=== PATIENT | female | born 1990 | race Caucasian/White ===

== ENCOUNTER → 2016-12-15 | Outpatient (CLI) | payer OTHER ==
[~2016-12-15] MED LIST: CYCL10TA PO; DRIS50002 PO; FISH100049 PO; FISHCAP PO; HYDR200T3 PO; KETO10TAB PO; NAPR500T2 PO; NORT50CA PO; PROT1TAB2 PO; TYLE325T5 PO; VITA10002 PO; ZITHTAB PO; ZOFR4TAB3 PO
[2016-12-15 19:46] LABS: BASO % 0.6 % (0.0-1.0); EOS # 0.1 K/mm3 (0.0-0.50); EOS % 1.2 % (0.0-3.0); LYMPH # 1.9 K/mm3 (1.5-6.5); LYMPH % 25.2 % (24.0-44.0); MEAN CORPUSCULAR HEMOGLOBIN 29.9 pg (27.0-33.0); MEAN CORPUSCULAR VOLUME 88.1 fl (80.0-96.0); MONO # 0.4 K/mm3 (0.0-0.8); MONO % 5.4 % (0.0-5.0); NEUTROPHILS # 4.8 K/mm3 (1.8-7.7); NEUTROPHILS % 65.9 % (36.0-66.0); WHITE BLOOD COUNT 7.2 K/mm3 (4.0-10.0)
[2016-12-15 20:03] LABS: ALT/SGPT 69 U/L (12-78); AST/SGOT 38 U/L (15-37); COMPLEMENT C3 181 MG/DL (90-180); COMPLEMENT C4 37.3 MG/DL (10-40); CREATININE FOR GFR 0.65 MG/DL (0.55-1.02); GLOMERULAR FILTRATION RATE > 60.0 (>60)
== END ==
LOC: M WUC 17:37
PROVIDERS: ATTEND Internal Medicine Rheumatology
DX: Z79.899 Other long term (current) drug therapy (principal)

== ENCOUNTER 2017-06-23 19:12 | Emergency (ER) | payer MEDICAID, OTHER ==
[~2017-06-23] VITALS: Ht 175.3 cm; Wt 177.0 kg
[~2017-06-23 19:12] MED LIST changes: -NAPR500T2 PO; +NAPR500T3 PO
[2017-06-23 19:40] VITALS: BP 186/93
[2017-06-23] MEDS ORDERED: PERCOCET 5MG/325MG TAB PO ONE (20:15)
[2017-06-23] MEDS ORDERED: PERC5TAB12 PO (22:09)
--- NOTE | 2017-06-24 05:45 | REP ---
LEFT ANKLE: CLINICAL: Trauma. TECHNIQUE: AP, lateral, bilateral oblique views of the left ankle. FINDINGS: Diffuse soft tissue swelling is appreciated. No acute fracture or dislocation. Joint spaces and ankle mortise are intact. No subcutaneous emphysema or radiodense foreign body. IMPRESSION: Mild swelling. No acute fracture. Signed by Andrey Hinds MD 06/25/2017 08:23 A
--- NOTE | 2017-06-24 05:54 | REP ---
LEFT KNEE: CLINICAL: Trauma. TECHNIQUE: AP, lateral, bilateral oblique views of the left knee. FINDINGS: There appears to be an avulsion fracture of the fibular head which requires correlation. Moderate tricompartmental degenerative changes are also noted including increased sclerosis to the tibial plateau and posterior patella with subtle marginal spurring and minimal joint space narrowing. No further acute fracture or dislocation identified or suggested. Very subtle avulsion injury off of the inferior lateral aspect of the patella cannot be excluded as well and requires correlation. IMPRESSION: Avulsion fracture of the fibular head and less likely small avulsion fracture of the patella. Moderate tricompartmental degenerative changes. Signed by Andrey Hinds MD 06/25/2017 08:25 A
== END 2017-06-23 22:19 | disposition home or self-care (01) ==
LOC: M ED 19:12 → EDBD 19:12 → M ED 22:19
DX: S82.832A Other fracture of upper and lower end of left fibula, initial encounter for closed fracture (principal); W19.XXXA Unspecified fall, initial encounter; Y92.098 Other place in other non-institutional residence as the place of occurrence of the external cause; Y93.01 Activity, walking, marching and hiking; Y99.8 Other external cause status; M79.7 Fibromyalgia; E03.9 Hypothyroidism, unspecified; G62.9 Polyneuropathy, unspecified; M32.9 Systemic lupus erythematosus, unspecified; N28.9 Disorder of kidney and ureter, unspecified; Z79.899 Other long term (current) drug therapy; Z88.1 Allergy status to other antibiotic agents; Z88.5 Allergy status to narcotic agent; Z88.2 Allergy status to sulfonamides; Z91.040 Latex allergy status; Z91.09 Other allergy status, other than to drugs and biological substances

== ENCOUNTER → 2017-07-05 | Outpatient (CLI) | payer OTHER ==
[~2017-07-05] MED LIST changes: +PERC5TAB12 PO
--- NOTE | 2017-07-05 18:16 | REP ---
MRI LEFT KNEE: TECHNIQUE: Axial proton density fat saturation, sagittal proton density T2 STIR, water excitation, coronal proton density, proton density fat saturation. Menisci are intact. I do not see evidence of a meniscal tear. The cruciate and collateral ligaments are intact. Extensor mechanism is intact. Mild to moderate edema is seen anterior to the patella and patellar tendon. No osteochondral defect is seen. There is marrow edema in the medial femoral condyle and throughout the tibial plateau and head of the fibula consistent with bone bruising. Two low signal areas posteriorly in the distal femoral shaft may represent bone islands. There is a fairly large joint effusion with some fluid extending into the popliteal fossa. There is also moderate edema in the posterior superficial soft tissues. IMPRESSION: No evidence of meniscal tear. Cruciate and collateral ligaments are intact. Bone bruising medial femoral condyle, tibial plateau and fibular head. Large joint effusion. Signed by David Guadarrama MD 07/06/2017 05:20 P
== END ==
LOC: M PLARAD 15:03
PROVIDERS: ATTEND Orthopaedic Surgery
DX: M25.462 Effusion, left knee (principal)

== ENCOUNTER → 2017-08-02 | Outpatient (CLI) | payer OTHER | LOC: M PLARAD 07:38 | DX: R51 Headache (principal) | CPT/HCPCS: 70551 ==

== ENCOUNTER 2017-08-16 14:35 | Outpatient (RCR) | payer OTHER | END 2017-08-18 | LOC: M PT 14:35 | DX: Z51.89 Encounter for other specified aftercare (principal); M25.462 Effusion, left knee | CPT/HCPCS: 97110 ==

== ENCOUNTER 2017-08-20 15:07 | Outpatient (RCR) | payer OTHER | END 2017-09-15 | LOC: M PT 15:07 | DX: Z51.89 Encounter for other specified aftercare (principal); S80.02XA Contusion of left knee, initial encounter; M25.462 Effusion, left knee | CPT/HCPCS: 97110 ==

== ENCOUNTER → 2017-12-06 | Outpatient (CLI) | payer OTHER | LOC: M RAD 14:10 | DX: M79.604 Pain in right leg (principal) | CPT/HCPCS: 93971 ==

== ENCOUNTER → 2017-12-06 | Outpatient (CLI) | payer OTHER | LOC: M WUC 12:00 | DX: M25.561 Pain in right knee (principal) | CPT/HCPCS: 73564 ==

== ENCOUNTER → 2017-12-27 | Outpatient (CLI) | payer OTHER | LOC: M PLARAD 07:42 | DX: M22.41 Chondromalacia patellae, right knee (principal); M17.11 Unilateral primary osteoarthritis, right knee | CPT/HCPCS: 73721 ==

== ENCOUNTER → 2018-09-29 | Outpatient (CLI) | payer OTHER ==
[~2018-09-29] MED LIST changes: -DRIS50002 PO; +DRIS50003 PO; +NAPR-885 PO; -NAPR500T3 PO; +ZOFR4TAB14 PO; -ZOFR4TAB3 PO
[2018-09-29 16:36] LABS: BASO % 0.6 % (0.0-1.0); EOS # 0.1 10^3/uL (0.0-0.50); EOS % 1.4 % (0.0-3.0); HEMATOCRIT 43.3 % (36.0-47.0); HEMOGLOBIN 14.2 g/dl (12.0-15.5); LYMPH # 1.5 10^3/uL (1.5-6.5); LYMPH % 30.1 % (24.0-44.0); MEAN CORPUSCULAR HEMOGLOBIN 30.1 pg (27.0-33.0); MEAN CORPUSCULAR HGB CONC 32.8 g/dl (32.0-36.5); MEAN CORPUSCULAR VOLUME 91.7 fl (80.0-96.0); MONO # 0.6 10^3/uL (0.0-0.8); MONO % 13.1 % (0.0-5.0); NEUTROPHILS # 2.7 10^3/uL (1.8-7.7); NEUTROPHILS % 54.6 % (36.0-66.0); PLATELET COUNT, AUTOMATED 269 10^3/uL (150-450); RED BLOOD COUNT 4.72 10^6/uL (4.00-5.40); WHITE BLOOD COUNT 4.9 10^3/uL (4.0-10.0)
[2018-09-29 16:48] LABS: HEMOGLOBIN A1c 4.9 %
[2018-09-29 17:00] LABS: ALBUMIN 3.6 GM/DL (3.2-5.2); ALT/SGPT 42 U/L (12-78); BILIRUBIN,TOTAL 0.7 MG/DL (0.2-1.0); BLOOD UREA NITROGEN 12 MG/DL (7-18); CALCIUM LEVEL 9.5 MG/DL (8.5-10.1); CARBON DIOXIDE LEVEL 27 MEQ/L (21-32); CHLORIDE LEVEL 103 MEQ/L (98-107); CREATININE FOR GFR 0.63 MG/DL (0.55-1.30); FERRITIN 86 NG/ML (8-252); GLOMERULAR FILTRATION RATE > 60.0 (>60); GLUCOSE, FASTING 89 MG/DL (70-100); IRON (FE) 67 UG/DL (50-170); MAGNESIUM LEVEL 1.8 MG/DL (1.8-2.4); PERCENT SATURATION 23.8 % (13.2-45.0); PHOSPHORUS LEVEL 2.3 MG/DL (2.5-4.9); POTASSIUM SERUM 3.9 MEQ/L (3.5-5.1); SODIUM LEVEL 140 MEQ/L (136-145); TOTAL IRON BINDING CAPACITY 282 UG/DL (250-450); TOTAL PROTEIN 6.8 GM/DL (6.4-8.2)
[2018-09-29 17:05] LABS: TOTAL 25(OH) VITAMIN D 73.3 NG/ML (30.0-100.0)
[2018-09-29 17:06] LABS: VITAMIN B12 LEVEL 1485 PG/ML (247-911)
[2018-09-29 18:16] LABS: HEMATOCRIT 43.3 % (36.0-47.0)
== END ==
LOC: M WUC 14:10
PROVIDERS: ATTEND Surgery
DX: K91.2 Postsurgical malabsorption, not elsewhere classified (principal); E55.9 Vitamin D deficiency, unspecified; Z98.84 Bariatric surgery status

== ENCOUNTER → 2018-12-13 | Outpatient (CLI) | payer OTHER ==
[~2018-12-13] MED LIST changes: +CYCL10TA; +FLUO20CA19; +GABA600T4; +HYDR-3363; +LEVO50TA5; +METO1TAB32; +TRAZ-252; +ZALE10CA
[2018-12-13 20:41] LABS: INR 1.06; PROTHROMBIN TIME 13.9 SECONDS (12.1-14.4)
[2018-12-13 20:42] LABS: PARTIAL THROMBOPLASTIN TIME 36.7 SECONDS (25.4-37.6)
== END ==
LOC: M WUC 18:40
PROVIDERS: ATTEND Physician Assistant
DX: M79.81 Nontraumatic hematoma of soft tissue (principal)

== ENCOUNTER 2019-02-28 19:02 | Emergency (ER) | payer OTHER ==
[~2019-02-28] VITALS: Ht 175.3 cm; Wt 105.3 kg
[~2019-02-28 19:02] MED LIST changes: +CYAN100049 PO; -VITA10002 PO
[2019-02-28 21:10] LABS: BASO % 0.5 % (0.0-1.0); EOS # 0.2 10^3/uL (0.0-0.50); EOS % 2.5 % (0.0-3.0); HEMOGLOBIN 13.2 g/dl (12.0-15.5); LYMPH # 2.3 10^3/uL (1.5-6.5); LYMPH % 38.4 % (24.0-44.0); MEAN CORPUSCULAR HEMOGLOBIN 31.2 pg (27.0-33.0); MEAN CORPUSCULAR VOLUME 94.6 fl (80.0-96.0); MONO # 0.6 10^3/uL (0.0-0.8); MONO % 10.3 % (0.0-5.0); NEUTROPHILS # 2.9 10^3/uL (1.8-7.7); NEUTROPHILS % 48.1 % (36.0-66.0); PLATELET COUNT, AUTOMATED 291 10^3/uL (150-450); RED BLOOD COUNT 4.23 10^6/uL (4.00-5.40)
[2019-02-28] MEDS ORDERED: KETOROLAC 30 MG/ML VIAL (J1885) IV ONE (22:00)
[2019-02-28] MEDS ORDERED: NS 1,000 ML IV ONE (22:00)
[2019-02-28 23:35] LABS: HCG, SERUM QUALITATIVE NEGATIVE (NEGATIVE)
[2019-02-28 23:44] LABS: ALBUMIN 3.1 GM/DL (3.2-5.2); ALT/SGPT 17 U/L (12-78); BILIRUBIN,TOTAL 0.3 MG/DL (0.2-1.0); BLOOD UREA NITROGEN 12 MG/DL (7-18); CALCIUM LEVEL 8.8 MG/DL (8.5-10.1); CARBON DIOXIDE LEVEL 25 MEQ/L (21-32); CHLORIDE LEVEL 109 MEQ/L (98-107); CREATININE FOR GFR 0.49 MG/DL (0.55-1.30); FREE T4 0.92 NG/DL (0.76-1.46); GLOMERULAR FILTRATION RATE > 60.0 (>60); GLUCOSE, FASTING 68 MG/DL (70-100); POTASSIUM SERUM 4.1 MEQ/L (3.5-5.1); SODIUM LEVEL 145 MEQ/L (136-145); TOTAL PROTEIN 5.8 GM/DL (6.4-8.2)
[2019-03-01 00:48] VITALS: BP 107/56
--- NOTE | 2019-03-01 00:57 | REPVR ---
EXAM: CT Head Without Contrast EXAM DATE/TIME: 02/28/2019 12:03 AM CLINICAL HISTORY: 28 years old, female; Pain; Headache; Additional info: Dizziness TECHNIQUE: Imaging protocol: Computed tomography images of the head without contrast. Radiation optimization: All CT scans at this facility use at least one of these dose optimization techniques: automated exposure control; mA and/or kV adjustment per patient size (includes targeted exams where dose is matched to clinical indication); or iterative reconstruction. COMPARISON: MRI-Brain without Contrast 08/02/2017 8:13 AM FINDINGS: There is no acute intracranial hemorrhage, extra axial hematoma, or midline shift. The ventricles are not dilated. No evidence of pneumocephalus. No CT findings are seen at the current time to suggest changes of acute territorial vascular infarction. Note is made however, that CT changes, may lag clinical findings in acute CVA. If clinically indicated, consideration could be given to MRI with diffusion weighted imaging, due to its greater sensitivity, for detection of acute ischemic change. No evidence of regional or global cerebral edema. No evidence of white matter attenuation changes. Intracranial calcifications are incidentally noted. No pericranial scalp hematoma is seen. No acute cranial vault fracture is seen. No fluid is seen within the visualized paranasal sinuses or mastoid air cells. IMPRESSION: No evidence of an acute intracranial abnormality. No evidence of acute territorial major vessel infarct, mass effect, or hemorrhage. Electronically signed by: Gil Cerrato On 03/01/2019 00:57:20 AM
--- NOTE | 2019-03-01 07:20 | ECGEPIP ---
[facility] - ED Test Date: 2019-02-28 Pat Name: FLAVIA CASTANEDA Department: Room: - Gender: Female Manager Solution: stalin : 1990 Requested By: FARZANEH Stephen PA-C Order Number: [id number] Reading MD: Hailey Love Measurements Intervals [place] Rate: 53 P: 49 ID: [id number] QRS: 20 QRSD: 94 T: -1 QT: 427 QTc: 402 Interpretive Statements SINUS BRADYCARDIA NONSPECIFIC T-WAVE ABNORMALITY No prior Electronically Signed on 03-01-2019 7:20:16 EDT by Hailey Love
[2019-03-01 09:29] LABS: VITAMIN B12 LEVEL 563 PG/ML (247-911)
== END 2019-03-01 00:55 | disposition home or self-care (01) ==
LOC: M ED 19:02
DX: R42 Dizziness and giddiness (principal); R11.2 Nausea with vomiting, unspecified; R53.1 Weakness; I10 Essential (primary) hypertension; J45.909 Unspecified asthma, uncomplicated; M32.9 Systemic lupus erythematosus, unspecified; E03.9 Hypothyroidism, unspecified; Z98.84 Bariatric surgery status; Z79.899 Other long term (current) drug therapy; Z79.890 Hormone replacement therapy; Z88.1 Allergy status to other antibiotic agents; Z88.2 Allergy status to sulfonamides; Z88.5 Allergy status to narcotic agent; Z91.040 Latex allergy status; Z91.048 Other nonmedicinal substance allergy status
CPT/HCPCS: 70450; 80053; 81001; 82607; 83735; 84439; 84443; 84703; 85025; 87086; 93005; 96374; 99284; J1885

== ENCOUNTER 2019-05-09 18:21 | Observation (INO) | payer OTHER ==
[~2019-05-09] VITALS: Ht 175.3 cm; Wt 95.6 kg
[2019-05-09 18:59] LABS: BASO % 0.4 % (0.0-1.0); EOS % 0.1 % (0.0-3.0); HEMATOCRIT 39.8 % (36.0-47.0); HEMOGLOBIN 13.3 g/dl (12.0-15.5); LYMPH % 13.5 % (24.0-44.0); MEAN CORPUSCULAR HEMOGLOBIN 30.8 pg (27.0-33.0); MEAN CORPUSCULAR HGB CONC 33.4 g/dl (32.0-36.5); MEAN CORPUSCULAR VOLUME 92.1 fl (80.0-96.0); MONO # 0.3 10^3/uL (0.0-0.8); MONO % 3.6 % (0.0-5.0); NEUTROPHILS # 5.9 10^3/uL (1.5-8.5); NEUTROPHILS % 82.1 % (36.0-66.0); PLATELET COUNT, AUTOMATED 279 10^3/uL (150-450); RED BLOOD COUNT 4.32 10^6/uL (4.00-5.40); WHITE BLOOD COUNT 7.2 10^3/uL (4.0-10.0)
[2019-05-09] MEDS ORDERED: ONDANSETRON 4MG/2ML VIAL (J2405) IV ONE (19:00)
[2019-05-09 19:28] LABS: ALBUMIN 3.4 GM/DL (3.2-5.2); ALT/SGPT 12 U/L (12-78); BILIRUBIN,DIRECT 0.2 MG/DL (0.0-0.2); BILIRUBIN,TOTAL 0.7 MG/DL (0.2-1.0); BLOOD UREA NITROGEN 9 MG/DL (7-18); CALCIUM LEVEL 9.8 MG/DL (8.5-10.1); CARBON DIOXIDE LEVEL 22 MEQ/L (21-32); CHLORIDE LEVEL 109 MEQ/L (98-107); CREATININE FOR GFR 0.49 MG/DL (0.55-1.30); GLOMERULAR FILTRATION RATE > 60.0 (>60); GLUCOSE, FASTING 120 MG/DL (70-100); LIPASE 55 U/L (73-393); SODIUM LEVEL 140 MEQ/L (136-145); TOTAL PROTEIN 7.1 GM/DL (6.4-8.2)
[2019-05-09] MEDS ORDERED: METOCLOPRAMIDE INJ 10MG/2ML VIAL (J2765) IV ONE (20:00)
[2019-05-09] MEDS ORDERED: SUCR1TA PO (20:24)
[2019-05-09] MEDS ORDERED: MISO200T56 PO ×2 (20:24→21:48)
[2019-05-09] MEDS ORDERED: OMEP-221 PO ×2 (20:24→21:48)
[2019-05-09] MEDS ORDERED: CAPSAICIN 0.025% CR 60 GM TOP ONE (20:30)
[2019-05-09] MEDS ORDERED: NORTRIPTYLINE 25 MG CAP PO SCH (21:00)
[2019-05-09] MEDS: SUCRALFATE 1 GM TAB PO SCH (21:00)
[2019-05-09] MEDS: miSOPROStol 200 MCG TAB (S0191) PO SCH (21:00)
[2019-05-09] MEDS: HYDROXYCHLOROQUINE 200 MG TAB PO SCH (21:00)
[2019-05-09] MEDS ORDERED: HALOPERIDOL 5 MG/ML VIAL (J1630) IV ONE (21:00)
[2019-05-09] MEDS: GABAPENTIN 300 MG CAP PO SCH (21:00)
[2019-05-09] MEDS ORDERED: ISOVUE-370 76% 100ML VIAL (Q9967) As Ordered ONE (21:34)
[2019-05-09] MEDS ORDERED: diphenhydrAMINE INJ 50MG/ML VIAL (J1200) IV ONE (21:45)
[2019-05-09] MEDS ORDERED: FLUO20CA8 PO (21:48)
[2019-05-09] MEDS ORDERED: CYCL10TA PO (21:48)
[2019-05-09] MEDS ORDERED: NORT25CA2 PO (21:48)
[2019-05-09] MEDS ORDERED: ONDA4TAB6 PO (21:48)
[2019-05-09] MEDS ORDERED: ZALE10CA PO (21:48)
[2019-05-09] MEDS ORDERED: GABA600T4 PO (21:48)
[2019-05-09] MEDS ORDERED: SYNT50TA PO (21:48)
[2019-05-09] MEDS ORDERED: HYDR1TAB33 PO (21:48)
[2019-05-09] MEDS ORDERED: SUCR1TAB56 PO (21:48)
[2019-05-09] MEDS ORDERED: VITACHTA PO (21:53)
--- NOTE | 2019-05-09 22:49 | REPVR ---
PROCEDURE INFORMATION: Exam: CT Abdomen And Pelvis With Contrast Exam date and time: 05/09/2019 10:01 PM Clinical history: 28 years old, female; Vomiting; Abdominal pain; Generalized; Additional info: Diffuse abdominal pain, intractible vomiting, gastric bypass TECHNIQUE: Imaging protocol: Computed tomography of the abdomen and pelvis with intravenous contrast. Radiation optimization: All CT scans at this facility use at least one of these dose optimization techniques: automated exposure control; mA and/or kV adjustment per patient size (includes targeted exams where dose is matched to clinical indication); or iterative reconstruction. Contrast material: ISOVUE 370; Contrast volume: 100 ml; Contrast route: IV; COMPARISON: CT ABD PELVIS WITH CONTRAST 04/02/2015 1:43 PM FINDINGS: Liver: Normal. No mass. Gallbladder and bile ducts: There has been prior cholecystectomy. No ductal dilation. Pancreas: Normal. No ductal dilation. Spleen: Normal. No splenomegaly. Adrenals: Normal. No mass. Kidneys and ureters: Normal. No hydronephrosis. Stomach and bowel: Changes from prior bariatric surgery are noted. There is mild colonic diverticulosis without evidence of diverticulitis. Small right lower quadrant anterior abdominal wall hernia containing nonobstructed small bowel. No bowel obstruction or inflammatory changes. Appendix: No evidence of appendicitis. Intraperitoneal space: Unremarkable. No free air. No significant fluid collection. Vasculature: Unremarkable. No abdominal aortic aneurysm. Lymph nodes: Unremarkable. No enlarged lymph nodes. Bladder: Unremarkable as visualized. Reproductive: Unremarkable as visualized. Bones/joints: There are degenerative changes in the spine and pelvis. Soft tissues: Additional small fat containing anterior abdominal wall hernias. IMPRESSION: 1. Colonic diverticulosis without evidence of diverticulitis. 2. Stable appearance of small intra-abdominal wall hernias. 3. No acute findings. Electronically signed by: Alexi Wilson On 05/09/2019 22:49:22 PM
--- NOTE | 2019-05-09 23:10 | HPEPDOC ---
[facility] Medical History & Physical Date of Admission May 09, 2019 Date of Service: May 09, 2019 Primary Care Physician: Samreen Dubon Attending Physician: SO RECIO MD History and Physical TIME OF SERVICE: 11:40 PM CHIEF COMPLAINT: Nausea and vomiting HISTORY OF PRESENT ILLNESS: This is a 28-year-old female who presents with complaints of nausea and vomiting that began around 1 PM . She denies having blood in the vomit; the emesis consisted of the food that she earlier on in the day. Associated symptoms include fevers, chills, sweating, 3 episodes of non-bloody diarrhea (at her baseline she is constipated and has about one bowel movement per week) and 8/10, sharp mid abdominal pain which she attributes to heaving. Her last episode of emesis was around 9 PM after receiving Zofran, Reglan, Haldol, and capsaicin. She also received IV fluids. CT of abdomen contrast showed diverticulosis without diverticulitis. REVIEW OF SYSTEMS: 12 point review of systems negative except as listed in HPI PAST MEDICAL/ SURGICAL HISTORY: Obesity / Status post gastric bypass in August 2018 Fibromyalgia. Migraines. Chronic hypertension. Hypothyroidism. History of multiple kidney stone status post cystoscopy Unspecified autoimmune disease on Plaquenil Neuropathy PCOS History of congenital heart murmur Status post cholecystectomy SOCIAL HISTORY: Denies using tobacco. Does not use alcohol. Uses cannabis - She last used cannabis around 12 PM FAMILY HISTORY: Diabetes Chronic CAD ALLERGIES: Please see below. HOME MEDICATIONS: Please see below. PHYSICAL EXAMINATION: VITAL SIGNS: Please see below. GENERAL APPEARANCE: Well-nourished, well-developed, appears tired HEENT: Normocephalic, atraumatic, mucous membranes moist and pink CARDIOVASCULAR: Regular rate and rhythm. No murmurs, rubs or gallops LUNGS: Clear to auscultation bilaterally on room air ABDOMEN: Bowel sounds hypoactive. Abdomen is soft and nontender on palpation MUSCULOSKELETAL: Range of Motion is intact in all 4 extremities INTEGUMENT: Skin is slightly flushed NEUROLOGICAL: Cranial nerves II-12 are grossly intact. Speech is not dysarthric PSYCHIATRIC: Alert and oriented to person, place and time, and to understand and follow commands LABORATORY DATA: See below. IMAGING: CT of the abdomen contrast " IMPRESSION: 1. Colonic diverticulosis without evidence of diverticulitis. 2. Stable appearance of small intra- abdominal wall hernias. 3. No acute findings. " ASSESSMENT: Ms. Trevino is a 28-year-old female with a past medical history of migraines, chronic hypertension, fibro-myalgia, hepatitis, unspecified autoimmune disease, and gastric bypass will be admitted for management of dehydration /orthostatic hypotension secondary to vomiting. PLAN: 1. Orthostatic hypotension / dehydration secondary to vomiting Orthostats are positive. The vomiting may be due to a virus or related to cannabis use. She does not have any SIRS criteria and the UA was not consistent with a UTI Plan: Admit to general medical floor under observation/orthostatic/continue with IV fluids/ PO Zofran when necessary/advanced to soft diet in the morning 2.Obesity / Status post gastric bypass in August 2018 BMI 30.7 Plan: The patient missed her follow-up appointment with her bariatric surgeon, but we will schedule soon/resume vitamins. 3. Chronic hypertension. Plan: Continue home meds in the morning 4. Migraines. Plan: Continue home meds 5. Hypothyroidism. Plan: Continue home meds 6. Neuropathy Plan: Continue home meds 7. Unspecified autoimmune disease She reports having her her vision exam Q6 months Plan: c/w Plaquenil 8. Smokes THC. Plan: Smoking cessation education DVT prophylaxis with SCDs. Disposition: she will likely go home tomorrow after tolerating a regular diet Vital Signs Vital Signs Date Time Temp Pulse Resp B/P (MAP) Pulse Ox O2 Delivery O2 Flow Rate FiO2 05/09/19 22:46 99 147/86 (106) 84 138/73 (94) 85 135/75 (95) 05/09/19 20:31 98.2 16 97 Room Air Laboratory Data Labs 24H Laboratory Tests 2 05/09/19 18:37: Immature Granulocyte % (Auto) 0.3, Neutrophils (%) (Auto) 82.1H, Lymphocytes (%) (Auto) 13.5L, Monocytes (%) (Auto) 3.6, Eosinophils (%) (Auto) 0.1, Basophils (%) (Auto) 0.4, Neutrophils # (Auto) 5.9, Lymphocytes # (Auto) 1.0L, Monocytes # (Auto) 0.3, Eosinophils # (Auto) 0.0, Basophils # (Auto) 0.0, Nucleated Red Blood Cells % (auto) 0.0, Urine Color YELLOW, Urine Appearance TURBIDH, Urine pH 7.0, Urine Specific [place] 1.025, Urine Protein 1+H, Urine Glucose (UA) NEGATIVE, Urine Ketones 2+H, Urine Blood 2+H, Urine Nitrite NEGATIVE, Urine Bilirubin NEGATIVE, Urine Urobilinogen 4.0H, Urine Leukocyte Esterase NEGATIVE, Urine WBC (Auto) 2, Urine RBC (Auto) 7H, Urine Hyaline Casts (Auto) 0, Urine Bacteria (Auto) NEGATIVE, Urine Squamous Epithelial Cells 4, Urine Amorphous Sediment MODERATEH, Urine Mucus (Auto) SMALL, Urine Sperm (Auto) , Anion Gap 9, Glomerular Filtration Rate > 60.0, Calcium Level 9.8, Total Bilirubin 0.7, Direct Bilirubin 0.2, Aspartate Amino Transf (AST/SGOT) 17, Alanine Aminotransferase (ALT/SGPT) 12, Alkaline Phosphatase 97, Total Protein 7.1, Albumin 3.4, Albumin/Globulin Ratio 0.92L, Lipase 55L 05/09/19 18:46: POC Beta HCG, Quantitative < 5.0 CBC/BMP Laboratory Tests 05/09/19 18:37 Home Medications Scheduled Cyanocobalamin (Vitamin B-12) (Vitamin B-12) 1,000 Mcg Tab, 1,000 MCG PO DAILY Fluoxetine Hcl (Fluoxetine HCl) 20 Mg Capsule, 40 MG PO DAILY Gabapentin (Gabapentin) 600 Mg Tablet, 600 MG PO TID Hydroxychloroquine Sulfate (Hydroxychloroquine Sulfate) 200 Mg Tab, 200 MG PO BID Levothyroxine Sodium (Synthroid) 50 Mcg Tablet, 50 MCG PO DAILY Misoprostol (Misoprostol) 200 Mcg Tablet, 200 MCG PO QID Multivitamins (Child Chew Vitamin) 1 Each Tab.chew, 2 TAB PO DAILY TAKES AROUND LUNCHTIME Nortriptyline HCl (Nortriptyline HCl) 25 Mg Capsule, 25 MG PO QHS Omeprazole (Omeprazole) 40 Mg Capsule.dr, 40 MG PO BID Sucralfate (Sucralfate) 1 Gm Tablet, 1 GM PO QID Scheduled PRN Cyclobenzaprine HCl (Cyclobenzaprine HCl) 10 Mg Tablet, 10 MG PO TID PRN for MUSCLE SPASMS Hydroxyzine HCl (Hydroxyzine HCl) 50 Mg Tablet, 50 MG PO QID PRN for ANXIETY Ondansetron (Ondansetron Odt) 4 Mg Tab.rapdis, 4 MG PO QID PRN for NAUSEA Zaleplon (Zaleplon) 10 Mg Capsule, 10 MG PO QHS PRN for SLEEP Allergies Coded Allergies: Sulfa (Sulfonamide Antibiotics) (Verified Allergy, Unknown, 02/28/19) TAPE (Verified Allergy, Unknown, 02/28/19) ciprofloxacin (Verified Allergy, Unknown, 02/28/19) clindamycin (Verified Allergy, Unknown, 02/28/19) hydromorphone (Verified Allergy, Unknown, 02/28/19) latex (Verified Allergy, Unknown, 02/28/19) morphine (Verified Allergy, Unknown, 02/28/19) A-FIB/CHADSVASC A-FIB History Current/History of A-Fib/PAF?: No Current PO Anticoag Therapy: SO Peralta MD May 09, 2019 23:10
[2019-05-10 01:15] VITALS: BP 132/66
[2019-05-10] MEDS ORDERED: ONDANSETRON 4 MG TAB (S0181) PO PRN (02:30)
[2019-05-10] MEDS ORDERED: NS 1,000 ML IV SCH (02:30)
[2019-05-10] MEDS ORDERED: CYCLOBENZAPRINE 10 MG TAB PO PRN (02:30)
[2019-05-10] MEDS ORDERED: hydrOXYzine 50 MG TAB PO PRN (02:30)
[2019-05-10] MEDS ORDERED: LEVOTHYROXINE 50MCG TABLET (0.05MG) PO SCH (06:00)
[2019-05-10 08:00] VITALS: BP 127/71
[2019-05-10 08:08] LABS: HEMOGLOBIN 13.2 g/dl (12.0-15.5); MEAN CORPUSCULAR HEMOGLOBIN 30.8 pg (27.0-33.0); MEAN CORPUSCULAR VOLUME 93.5 fl (80.0-96.0); PLATELET COUNT, AUTOMATED 277 10^3/uL (150-450); RED BLOOD COUNT 4.28 10^6/uL (4.00-5.40); WHITE BLOOD COUNT 7.2 10^3/uL (4.0-10.0)
[2019-05-10 08:33] LABS: BLOOD UREA NITROGEN 7 MG/DL (7-18); CALCIUM LEVEL 9.3 MG/DL (8.5-10.1); CARBON DIOXIDE LEVEL 24 MEQ/L (21-32); CHLORIDE LEVEL 108 MEQ/L (98-107); CREATININE FOR GFR 0.49 MG/DL (0.55-1.30); GLOMERULAR FILTRATION RATE > 60.0 (>60); GLUCOSE, FASTING 76 MG/DL (70-100); POTASSIUM SERUM 3.8 MEQ/L (3.5-5.1); SODIUM LEVEL 140 MEQ/L (136-145)
[2019-05-10] MEDS: HYDROXYCHLOROQUINE 200 MG TAB PO SCH (08:35)
[2019-05-10] MEDS: GABAPENTIN 300 MG CAP PO SCH (08:35)
[2019-05-10] MEDS: miSOPROStol 200 MCG TAB (S0191) PO SCH ×2 (08:36→12:17)
[2019-05-10] MEDS: SUCRALFATE 1 GM TAB PO SCH ×2 (08:36→12:17)
[2019-05-10] MEDS ORDERED: FLUoxetine 20 MG CAP PO SCH (09:00)
[2019-05-10] MEDS ORDERED: CYANOCOBALAMIN 500 MCG TAB PO SCH (09:00)
[2019-05-10] MEDS ORDERED: PANTOPRAZOLE 40MG TAB (PROTONIX) PO SCH (09:00)
[2019-05-10] MEDS ORDERED: MULTIVITAMINS CHILDREN'S CHEWABLE TABLET PO SCH (12:00)
--- NOTE | 2019-05-10 16:37 | DS.PDOC ---
Discharge Summary General Date of Admission May 09, 2019 at 18:22 Date of Discharge 05/10/2019 Primary Care Physician: Samreen Dubon Discharge Summary PROCEDURES PERFORMED DURING STAY: None ADMITTING DIAGNOSES: 1. Dehydration due to vomiting 2. Obesity 3. Chronic HTN 5. Migraines 6. Hypothyroidism 7. Neuropathy 8. THC use DISCHARGE DIAGNOSES: 1. Dehydration due to vomiting 2. Obesity 3. Chronic HTN 5. Migraines 6. Hypothyroidism 7. Neuropathy 8. THC use COMPLICATIONS/CHIEF COMPLAINT: Intractable Cyclical Vomiting. HISTORY OF PRESENT ILLNESS: 28-year-old female presented to the emergency room with 1 day history of nausea and vomiting. Patient reports vomit consisting of food she had eaten earlier that day without evidence of blood. Patient then had subsequent dry heaving, fevers, chills, and 3 episodes of diarrhea without blood. He also experienced sharp midabdominal pain which she associates with the vomiting and dry heaving. The patient has a history of daily marijuana use, which she states she uses for her fibromyalgia pain. HOSPITAL COURSE: Patient was admitted to the hospital for IV fluid hydration, supportive care, and further evaluation. CT of the abdomen was negative for any acute findings. The patient received Zofran, Reglan, Haldol, and capsaicin for her nausea while in the emergency department. The subsequent morning, she was able to tolerate regular diet at breakfast and lunch and did not require further antiemetic medication. The patient's hydration status also improved with IV fluid hydration and improved oral intake. On day of discharge, patient was found to be stable and safe for discharge. DISCHARGE MEDICATIONS: Please see below. ALLERGIES: Please see below. PHYSICAL EXAMINATION ON DISCHARGE: VITAL SIGNS: Please see below. GENERAL: Alert, comfortable, in no acute distress HEENT: Normocephalic, atraumatic, PERRLA, EOMI, moist mucous membranes NECK: Supple, trachea midline, no lymphadenopathy, no JVD CARDIOVASCULAR EXAMINATION:. Regular rate and rhythm, normal S1, S2. No murmurs, rubs, or gallops RESPIRATORY EXAMINATION:. Clear to auscultation bilaterally with equal air entry bilaterally ABDOMINAL EXAMINATION: Soft, nontender, nondistended, bowel sounds present, no masses or hepatosplenomegaly appreciated EXTREMITIES: No cyanosis or edema. Pulses 2+/4 in bilateral upper and lower extremities SKIN: [place], warm, dry NEUROLOGICAL EXAMINATION:, Alert and oriented 3 to person, place and time. Cranial nerves II12 grossly intact. No focal deficits appreciated PSYCHIATRIC EXAMINATION:. Mood and affect appropriate LABORATORY DATA: Please see below. IMAGIN05/09/19 CT abdomen/pelvis: IMPRESSION: 1. Colonic diverticulosis without evidence of diverticulitis. 2. Stable appearance of small intra-abdominal wall hernias. 3. No acute findings. PROGNOSIS: Good ACTIVITY: As tolerated. DIET: As tolerated DISCHARGE PLAN:. Home DISPOSITION: 01 Home, Self-Care. DISCHARGE INSTRUCTIONS: 1. Follow-up with PCP in 7-10 days. 2. Cessation of smoking marijuana to help prevent future episodes of similar symptoms 3. Return to the ER if you experience any problems ITEMS TO FOLLOWUP ON ON OUTPATIENT: 1.. Cyclical vomiting syndrome, possibly secondary to marijuana use. DISCHARGE CONDITION:, Stable. TIME SPENT ON DISCHARGE: Greater than 35 minutes. Vital Signs/I&Os Vital Signs Date Time Temp Pulse Resp B/P (MAP) Pulse Ox O2 Delivery O2 Flow Rate FiO2 05/10/19 08:00 98.9 93 18 127/71 (89) 96 Room Air I&O- Last 24 Hours up to 6 AM 05/10/19 06:00 Output Total 200 ml Balance -200 ml Laboratory Data Labs 24H Laboratory Tests 2 05/09/19 18:37: Immature Granulocyte % (Auto) 0.3, Neutrophils (%) (Auto) 82.1H, Lymphocytes (%) (Auto) 13.5L, Monocytes (%) (Auto) 3.6, Eosinophils (%) (Auto) 0.1, Basophils (%) (Auto) 0.4, Neutrophils # (Auto) 5.9, Lymphocytes # (Auto) 1.0L, Monocytes # (Auto) 0.3, Eosinophils # (Auto) 0.0, Basophils # (Auto) 0.0, Nucleated Red Blood Cells % (auto) 0.0, Urine Color YELLOW, Urine Appearance TURBIDH, Urine pH 7.0, Urine Specific [place] 1.025, Urine Protein 1+H, Urine Glucose (UA) NEGATIVE, Urine Ketones 2+H, Urine Blood 2+H, Urine Nitrite NEGATIVE, Urine Bilirubin NEGATIVE, Urine Urobilinogen 4.0H, Urine Leukocyte Esterase NEGATIVE, Urine WBC (Auto) 2, Urine RBC (Auto) 7H, Urine Hyaline Casts (Auto) 0, Urine Bacteria (Auto) NEGATIVE, Urine Squamous Epithelial Cells 4, Urine Amorphous Sediment MODERATEH, Urine Mucus (Auto) SMALL, Urine Sperm (Auto) , Anion Gap 9, Glomerular Filtration Rate > 60.0, Calcium Level 9.8, Total Bilirubin 0.7, Direct Bilirubin 0.2, Aspartate Amino Transf (AST/SGOT) 17, Alanine Aminotransferase (ALT/SGPT) 12, Alkaline Phosphatase 97, Total Protein 7.1, Albumin 3.4, Albumin/Globulin Ratio 0.92L, Lipase 55L 05/09/19 18:46: POC Beta HCG, Quantitative < 5.0 05/10/19 07:56: Nucleated Red Blood Cells % (auto) 0.0, Anion Gap 8, Glomerular Filtration Rate > 60.0, Calcium Level 9.3 CBC/BMP Laboratory Tests 05/09/19 18:37 05/10/19 07:56 Discharge Medications Scheduled Cyanocobalamin (Vitamin B-12) (Vitamin B-12) 1,000 Mcg Tab, 1,000 MCG PO DAILY, (Reported) Fluoxetine Hcl (Fluoxetine HCl) 20 Mg Capsule, 40 MG PO DAILY, (Reported) Gabapentin (Gabapentin) 600 Mg Tablet, 600 MG PO TID, (Reported) Hydroxychloroquine Sulfate (Hydroxychloroquine Sulfate) 200 Mg Tab, 200 MG PO BID, (Reported) Levothyroxine Sodium (Synthroid) 50 Mcg Tablet, 50 MCG PO DAILY, (Reported) Misoprostol (Misoprostol) 200 Mcg Tablet, 200 MCG PO QID, (Reported) Multivitamins (Child Chew Vitamin) 1 Each Tab.chew, 2 TAB PO DAILY, (Reported) TAKES AROUND LUNCHTIME Nortriptyline HCl (Nortriptyline HCl) 25 Mg Capsule, 25 MG PO QHS, (Reported) Omeprazole (Omeprazole) 40 Mg Capsule.dr, 40 MG PO BID, (Reported) Sucralfate (Sucralfate) 1 Gm Tablet, 1 GM PO QID, (Reported) Scheduled PRN Cyclobenzaprine HCl (Cyclobenzaprine HCl) 10 Mg Tablet, 10 MG PO TID PRN for MUSCLE SPASMS, (Reported) Hydroxyzine HCl (Hydroxyzine HCl) 50 Mg Tablet, 50 MG PO QID PRN for ANXIETY, (Reported) Ondansetron (Ondansetron Odt) 4 Mg Tab.rapdis, 4 MG PO QID PRN for NAUSEA, (Reported) Zaleplon (Zaleplon) 10 Mg Capsule, 10 MG PO QHS PRN for SLEEP, (Reported) Allergies Coded Allergies: Sulfa (Sulfonamide Antibiotics) (Verified Allergy, Unknown, 02/28/19) TAPE (Verified Allergy, Unknown, 02/28/19) ciprofloxacin (Verified Allergy, Unknown, 02/28/19) clindamycin (Verified Allergy, Unknown, 02/28/19) hydromorphone (Verified Allergy, Unknown, 02/28/19) latex (Verified Allergy, Unknown, 02/28/19) morphine (Verified Allergy, Unknown, 02/28/19) GME ATTESTATION GME ATTESTATION My faculty preceptor for this patient encounter was physically present during the encounter and was fully available. All aspects of the patient interview, examination, medical decision making process, and medical care plan development were reviewed and approved by the faculty preceptor. The faculty preceptor is aware and concurs with the plan as stated in the body of this note and will attest to such by his/her cosignature. ATTENDING NOTE I, Srinath Machado, have independently examined this patient and performed my own physical exam, as well as reviewed the documentation and edited where necessary. I have discussed in detail with the resident / student the findings and plan of treatment as documented by the resident / student and edited their note. I agree with their findings and treatment plan and have edited their documentation. I will continue to follow the patient during this hospital stay. LESLEY WHITE PGY-1 May 10, 2019 16:37 SRINATH MACHADO MD May 10, 2019 17:55
--- NOTE | 2019-05-10 17:21 | ECGEPIP ---
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
== END 2019-05-10 14:35 | disposition home or self-care (01) ==
LOC: M ED 18:21 → M ED INP 18:22 → M PED 05-10 00:56
PROVIDERS: ADMIT Internal Medicine; ATTEND Internal Medicine
DX: E86.0 Dehydration (principal); R11.2 Nausea with vomiting, unspecified; I10 Essential (primary) hypertension; G43.909 Migraine, unspecified, not intractable, without status migrainosus; E03.9 Hypothyroidism, unspecified; G62.9 Polyneuropathy, unspecified; E66.9 Obesity, unspecified; M79.7 Fibromyalgia; F12.10 Cannabis abuse, uncomplicated; E28.2 Polycystic ovarian syndrome; Z98.84 Bariatric surgery status; Z79.899 Other long term (current) drug therapy
CPT/HCPCS: 36415; 74177; 80048; 80076; 81001; 83690; 84702; 85025; 85027; 93005; 96361; 96374; 96375; 99285; J1200; J1630; J2405; J2765; Q9967

== ENCOUNTER 2019-06-08 00:59 | Emergency (ER) | payer OTHER ==
[~2019-06-08] VITALS: Ht 175.3 cm; Wt 90.9 kg
[~2019-06-08 00:59] MED LIST changes: +FLUO20CA8 PO; +GABA600T4 PO; +HYDR1TAB33 PO; +MISO200T56 PO; +NORT25CA2 PO; +OMEP-221 PO; +ONDA4TAB6 PO; +SUCR1TA PO; +SUCR1TAB56 PO; +SYNT50TA PO; +VITACHTA PO; +ZALE10CA PO
[2019-06-08] MEDS ORDERED: NS 1,000 ML IV ONE ×2 (01:15→02:15)
[2019-06-08] MEDS ORDERED: diphenhydrAMINE INJ 50MG/ML VIAL (J1200) IV STA (01:19)
[2019-06-08] MEDS ORDERED: HALOPERIDOL 5 MG/ML VIAL (J1630) IV STA ×2 (01:19→02:58)
[2019-06-08 01:50] LABS: BASO % 0.2 % (0.0-1.0); HEMATOCRIT 42.1 % (36.0-47.0); HEMOGLOBIN 13.7 g/dl (12.0-15.5); LYMPH # 0.7 10^3/uL (1.5-5.0); LYMPH % 7.3 % (24.0-44.0); MEAN CORPUSCULAR HEMOGLOBIN 30.6 pg (27.0-33.0); MEAN CORPUSCULAR HGB CONC 32.5 g/dl (32.0-36.5); MONO # 0.2 10^3/uL (0.0-0.8); MONO % 1.9 % (0.0-5.0); NEUTROPHILS # 8.8 10^3/uL (1.5-8.5); NEUTROPHILS % 90.3 % (36.0-66.0); PLATELET COUNT, AUTOMATED 312 10^3/uL (150-450); RED BLOOD COUNT 4.48 10^6/uL (4.00-5.40); WHITE BLOOD COUNT 9.8 10^3/uL (4.0-10.0)
[2019-06-08] MEDS ORDERED: METOCLOPRAMIDE INJ 10MG/2ML VIAL (J2765) IV ONE ×2 (02:00→07:00)
[2019-06-08 02:58] LABS: ALBUMIN 3.4 GM/DL (3.2-5.2); ALT/SGPT 17 U/L (12-78); BILIRUBIN,DIRECT < 0.1 MG/DL (0.0-0.2); BILIRUBIN,TOTAL 0.5 MG/DL (0.2-1.0); BLOOD UREA NITROGEN 11 MG/DL (7-18); CALCIUM LEVEL 9.2 MG/DL (8.5-10.1); CARBON DIOXIDE LEVEL 26 MEQ/L (21-32); CHLORIDE LEVEL 104 MEQ/L (98-107); GLOMERULAR FILTRATION RATE > 60.0 (>60); GLUCOSE, FASTING 136 MG/DL (70-100); LIPASE 53 U/L (73-393); POTASSIUM SERUM 4.4 MEQ/L (3.5-5.1); SODIUM LEVEL 138 MEQ/L (136-145); TOTAL PROTEIN 7.2 GM/DL (6.4-8.2)
[2019-06-08 03:14] LABS: APPEARANCE, URINE CLEAR (CLEAR); BACTERIA, URINE AUTO 1+ (NEGATIVE); BILIRUBIN, URINE AUTO NEGATIVE (NEGATIVE); BLOOD, URINE BLOOD 3+ (NEGATIVE); COLOR, URINE YELLOW (YELLOW); GLUCOSE, URINE (UA) AUTO NEGATIVE (NEGATIVE); KETONE, URINE AUTO 2+ mg/dL (NEGATIVE); LEUKOCYTE ESTERASE, URINE AUTO NEGATIVE (NEGATIVE); MUCUS, URINE SMALL (NEGATIVE); NITRITE, URINE AUTO NEGATIVE (NEGATIVE); PROTEIN, URINE AUTO NEGATIVE (NEGATIVE); RBC, URINE AUTO 2 /HPF (0-3); SPECIFIC GRAVITY URINE AUTO 1.017 (1.002-1.035); SQUAMOUS EPITHELIAL CELL UR AU 5 /HPF (0-6); UROBILINOGEN, URINE AUTO 0.2 mg/dL (0.0-2.0); WBC, URINE AUTO 2 /HPF (0-3)
[2019-06-08 03:15] LABS: HCG, SERUM QUALITATIVE NEGATIVE (NEGATIVE)
[2019-06-08 03:36] LABS: AMPHETAMINES LEVEL URINE NEGATIVE (NEGATIVE); BARBITURATES URINE NEGATIVE (NEGATIVE); BENZODIAZEPINES URINE POSITIVE (NEGATIVE); CANNABINOIDS URINE POSITIVE (NEGATIVE); COCAINE METABOLITE URINE NEGATIVE (NEGATIVE); METHADONE URINE NEGATIVE (NEGATIVE); OPIATES URINE NEGATIVE (NEGATIVE); PHENCYCLIDINE URINE NEGATIVE (NEGATIVE)
[2019-06-08 06:04] VITALS: BP 120/58
== END 2019-06-08 06:41 | disposition home or self-care (01) ==
LOC: M ED 00:59
DX: F12.288 Cannabis dependence with other cannabis-induced disorder (principal); F33.9 Major depressive disorder, recurrent, unspecified; F41.9 Anxiety disorder, unspecified; K21.9 Gastro-esophageal reflux disease without esophagitis; G43.909 Migraine, unspecified, not intractable, without status migrainosus; Z98.84 Bariatric surgery status; Z79.899 Other long term (current) drug therapy; Z88.1 Allergy status to other antibiotic agents; Z88.2 Allergy status to sulfonamides; Z88.5 Allergy status to narcotic agent; Z88.8 Allergy status to other drugs, medicaments and biological substances; Z91.040 Latex allergy status; Z91.048 Other nonmedicinal substance allergy status
CPT/HCPCS: 80048; 80076; 80307; 81001; 83690; 84703; 85025; 87086; 96361; 96374; 96375; 96376; 99284; J1200; J1630

== ENCOUNTER → 2019-07-10 | Outpatient (CLI) | payer OTHER ==
[~2019-07-10] MED LIST changes: +FLUO20CA20 PO; -FLUO20CA8 PO
--- NOTE | 2019-07-10 14:39 | REP ---
Clinical: Contusion. Pain. Technique: Bishop and bilateral lateral views of the nasal bones. Findings: The nasal bones appear relatively intact and without evidence for acute/displaced fracture. Overlying soft tissue is unremarkable. Impression: No definite acute/displaced nasal bone fracture appreciated. Electronically Signed by Andrey Hinds MD 07/10/2019 02:31 P
== END ==
LOC: M WUC 14:12
PROVIDERS: ATTEND Registered Nurse
DX: S09.92XA Unspecified injury of nose, initial encounter (principal); Y92.9 Unspecified place or not applicable; Y93.9 Activity, unspecified

== ENCOUNTER → 2019-07-30 | Outpatient (CLI) | payer OTHER ==
--- NOTE | 2019-07-31 07:57 | REP ---
LEFT KNEE SERIES: Five views of the left knee are performed. No acute fracture or dislocation is seen. There is mild medial joint space narrowing. There is mild scattered spurring along the margins of the joint. There is an old somewhat linear calcification above the proximal fibula unchanged since the prior exam of 06/23/2017. Subcortical posterior sclerosis density in the distal femoral shaft is unchanged probably representing ossification of a fibrous lesion along the cortex. There is mild lateral patellofemoral compartment narrowing with subchondral sclerosis and mild spurring of the lateral patellar facet. IMPRESSION: Mild degenerative changes. No acute fracture or dislocation. Benign sclerotic changes distal femoral shaft. Electronically Signed by David Guadarrama MD 07/31/2019 06:04 P
== END ==
LOC: M WUC 13:35
PROVIDERS: ATTEND Physician Assistant
DX: S80.02XA Contusion of left knee, initial encounter (principal); W18.30XA Fall on same level, unspecified, initial encounter; Y92.009 Unspecified place in unspecified non-institutional (private) residence as the place of occurrence of the external cause

== ENCOUNTER → 2019-09-01 | Outpatient (CLI) | payer OTHER ==
[~2019-09-01] MED LIST changes: +E-Z-GAS II EFFERVESCENT PACKET (SODIUM BICARB./CITRIC ACID/SIMETHICONE) As Ordered ONE; +E-Z-HD 98% w/w 340GM SUSP BTL As Ordered ONE; +E-Z-PAQUE 96% w/w SUSP 176GM BTL As Ordered ONE; -FLUO20CA19; +FLUO20CA22
--- NOTE | 2019-09-01 16:24 | REP ---
UPPER GI AIR CONTRAST AND SMALL BOWEL FOLLOW THROUGH The procedure was performed under the direct supervision of Dr. Strickland. The images were reviewed with Dr. 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 The intestinal gas pattern is non-specific. There are surgical clips in the right upper quadrant. Liquid barium was given in the erect position as well as liquid barium in the prone oblique position in order to perform a single contrast upper GI examination. Additionally liquid barium was given at the end of the examination in order to perform a small bowel follow through. The oral and pharyngeal stages of deglutition are unremarkable. Esophageal transport is prompt and efficient and there is no esophagitis, stricture, mucosal ring or hiatal hernia. There is gastroesophageal reflux demonstrated to the level of the jian. The patient is status post Kelsea-en-Y gastric bypass. Contrast passes through the pouch and anastomoses without delay. There is no evidence of gastritis neoplasm or ulcer disease. The visualized portion of the proximal small bowel appears normal in course and caliber. The barium column was followed through the small bowel to the level of the terminal ileum. Small bowel transit time is approximately 15 minutes . During fluoroscopy gentle palpation shows all loops are freely movable and pliable. There are no fixed or angulated loops. The small bowel mucosal pattern is normal in course and caliber. There is no transition to suggest a partial small-bowel obstruction. There are multiple diverticula seen throughout the small bowel. Spot filming of the terminal ileum shows it to be otherwise unremarkable. Impression: 1. There is gastroesophageal reflux demonstrated to the level of the jian. 2. There are multiple diverticula seen throughout the small bowel. 3.7 minutes of fluoro time was utilized for this procedure. Electronically Signed by STARR Crump 09/01/2019 03:26 P Electronically Signed by Salazar Strickland MD 09/01/2019 04:14 P
== END ==
LOC: M RAD 07:23
PROVIDERS: ATTEND Internal Medicine Gastroenterology
DX: K21.9 Gastro-esophageal reflux disease without esophagitis (principal); R11.2 Nausea with vomiting, unspecified

== ENCOUNTER → 2019-09-06 | Outpatient (CLI) | payer OTHER ==
[~2019-09-06] MED LIST changes: -E-Z-GAS II EFFERVESCENT PACKET (SODIUM BICARB./CITRIC ACID/SIMETHICONE) As Ordered ONE; -E-Z-HD 98% w/w 340GM SUSP BTL As Ordered ONE; -E-Z-PAQUE 96% w/w SUSP 176GM BTL As Ordered ONE
--- NOTE | 2019-09-06 16:26 | REP ---
Clinical: Cough . Comparison: 08/06/2015 . Technique: PA and lateral. Findings: The mediastinum and cardiac silhouette are normal. The lung acosta are clear and without acute consolidation, effusion, or pneumothorax. The skeletal structures are intact and normal. Impression: 1. No acute cardiopulmonary process. Electronically Signed by Andrey Hinds MD 09/06/2019 04:17 P
== END ==
LOC: M RAD 15:36
PROVIDERS: ATTEND Nurse Practitioner Adult Health
DX: R05 Cough (principal)

== ENCOUNTER 2019-11-19 14:00 | Emergency (ER) | payer OTHER ==
[~2019-11-19] VITALS: Ht 175.3 cm; Wt 82.3 kg
[~2019-11-19 14:00] MED LIST changes: +CYCL-707; +CYCL-707 PO; -CYCL10TA; -CYCL10TA PO
[2019-11-19] MEDS ORDERED: NS 1,000 ML IV ONE (14:30)
[2019-11-19 14:40] LABS: BASO # 0.1 10^3/uL (0.0-0.2); BASO % 0.4 % (0.0-1.0); EOS # 0.2 10^3/uL (0.0-0.5); EOS % 1.2 % (0.0-3.0); HEMATOCRIT 36.4 % (36.0-47.0); HEMOGLOBIN 11.9 g/dl (12.0-15.5); LYMPH % 15.1 % (24.0-44.0); MEAN CORPUSCULAR HGB CONC 32.7 g/dl (32.0-36.5); MEAN CORPUSCULAR VOLUME 88.6 fl (80.0-96.0); MONO # 0.8 10^3/uL (0.0-0.8); MONO % 6.5 % (0.0-5.0); NEUTROPHILS % 76.5 % (36.0-66.0); PLATELET COUNT, AUTOMATED 357 10^3/uL (150-450); RED BLOOD COUNT 4.11 10^6/uL (4.00-5.40)
[2019-11-19] MEDS ORDERED: HALOPERIDOL 5MG/ML VIAL (J1630 PER 1) IV ONE (14:45)
[2019-11-19] MEDS ORDERED: PANTOPRAZOLE 40MG VIAL (C9113 PER 1) IV ONE (14:45)
[2019-11-19 15:03] LABS: ALBUMIN 3.4 GM/DL (3.2-5.2); ALT/SGPT 21 U/L (12-78); BILIRUBIN,DIRECT < 0.1 MG/DL (0.0-0.2); BILIRUBIN,TOTAL 0.5 MG/DL (0.2-1.0); BLOOD UREA NITROGEN 9 MG/DL (7-18); CALCIUM LEVEL 8.6 MG/DL (8.5-10.1); CARBON DIOXIDE LEVEL 23 MEQ/L (21-32); CHLORIDE LEVEL 108 MEQ/L (98-107); CREATININE FOR GFR 0.52 MG/DL (0.55-1.30); GLOMERULAR FILTRATION RATE > 60.0 (>60); GLUCOSE, FASTING 93 MG/DL (70-100); LIPASE 82 U/L (73-393); POTASSIUM SERUM 4.4 MEQ/L (3.5-5.1); SODIUM LEVEL 141 MEQ/L (136-145); TOTAL PROTEIN 7.1 GM/DL (6.4-8.2)
[2019-11-19] MEDS ORDERED: CLON0.5T2 PO (15:07)
--- NOTE | 2019-11-19 15:45 | REP ---
Clinical: Intractable vomiting and abdominal pain. Technique: Upright view of the chest with supine and upright views of the abdomen and pelvis. Findings: Frontal upright view of the chest demonstrates no acute cardiopulmonary process or free air below the diaphragm to suspect pneumoperitoneum. Supine and upright views of the abdomen and pelvis demonstrate nonspecific bowel gas pattern without obstruction or perforation. Evidence of prior gastric bypass surgery and cholecystectomy. No organomegaly. Skeletal structures normal for age. Impression: Nonspecific bowel gas pattern. Electronically Signed by Andrey Hinds MD 11/19/2019 03:37 P
[2019-11-19] MEDS ORDERED: HALOPERIDOL 5MG/ML VIAL (J1630 PER 1) IM STA (15:57)
[2019-11-19] MEDS ORDERED: MULTIVITAMIN -ADULT INJECTION 10 ML, THIAMINE INJection 100 MG, FOLIC ACID 1 MG in NS 1... IV ONE (16:00)
[2019-11-19] MEDS ORDERED: HALOPERIDOL 5MG/ML VIAL (J1630 PER 1) IV STA (16:12)
[2019-11-19 18:46] VITALS: BP 148/64
[2020-04-17] MEDS ORDERED: GABA-282 PO (12:27)
== END 2019-11-19 18:47 | disposition home or self-care (01) ==
LOC: M ED 14:00
DX: R11.15 Cyclical vomiting syndrome unrelated to migraine (principal); F12.10 Cannabis abuse, uncomplicated; Z98.84 Bariatric surgery status; Z88.2 Allergy status to sulfonamides; Z91.048 Other nonmedicinal substance allergy status; Z88.8 Allergy status to other drugs, medicaments and biological substances; Z88.1 Allergy status to other antibiotic agents; Z88.5 Allergy status to narcotic agent; Z91.040 Latex allergy status; Z79.899 Other long term (current) drug therapy
CPT/HCPCS: 74021; 80048; 80076; 83605; 83690; 84702; 85025; 96361; 96374; 96375; 96376; 99284; C9113; J1630; J3411

== ENCOUNTER → 2020-04-15 | Outpatient (REF) | payer OTHER ==
[~2020-04-15] MED LIST changes: +CLON0.5T2 PO; +FAMO40TA3 PO; +GABA-843 PO; +LEVO25TA34 PO; +PRENTAB53 PO
== END ==
LOC: M LAB REF 16:36
PROVIDERS: ATTEND Nurse Practitioner Adult Health
DX: N91.2 Amenorrhea, unspecified (principal)

== ENCOUNTER 2020-04-17 07:26 | Inpatient (IN) | payer OTHER ==
[~2020-04-17] VITALS: Ht 175.3 cm; Wt 71.4 kg
[2020-04-17] MEDS: LEVOTHYROXINE 25MCG TABLET (0.025MG) PO SCH (06:00)
[~2020-04-17 07:26] MED LIST changes: -FAMO40TA3 PO; -GABA-843 PO; -LEVO25TA34 PO; -PRENTAB53 PO
[2020-04-17] MEDS ORDERED: HALOPERIDOL 5MG/ML VIAL (J1630 PER 1) IV ONE (07:45)
[2020-04-17] MEDS ORDERED: METOCLOPRAMIDE INJ 10MG/2ML VIAL (J2765 PER 1) IV ONE (08:15)
[2020-04-17 08:33] LABS: BASO % 0.1 % (0.0-1.0); HEMATOCRIT 37.7 % (36.0-47.0); HEMOGLOBIN 12.7 g/dl (12.0-15.5); LYMPH # 0.8 10^3/uL (1.5-5.0); LYMPH % 5.2 % (24.0-44.0); MEAN CORPUSCULAR HEMOGLOBIN 29.7 pg (27.0-33.0); MEAN CORPUSCULAR HGB CONC 33.7 g/dl (32.0-36.5); MEAN CORPUSCULAR VOLUME 88.1 fl (80.0-96.0); MONO # 0.3 10^3/uL (0.0-0.8); MONO % 1.9 % (0.0-5.0); NEUTROPHILS # 14.5 10^3/uL (1.5-8.5); NEUTROPHILS % 92.4 % (36.0-66.0); PLATELET COUNT, AUTOMATED 371 10^3/uL (150-450); RED BLOOD COUNT 4.28 10^6/uL (4.00-5.40); WHITE BLOOD COUNT 15.8 10^3/uL (4.0-10.0)
[2020-04-17 08:52] LABS: ALBUMIN 3.8 GM/DL (3.2-5.2); ALT/SGPT 21 U/L (12-78); BILIRUBIN,DIRECT 0.2 MG/DL (0.0-0.2); BILIRUBIN,TOTAL 0.3 MG/DL (0.2-1.0); BLOOD UREA NITROGEN 10 MG/DL (7-18); CALCIUM LEVEL 9.7 MG/DL (8.5-10.1); CARBON DIOXIDE LEVEL 19 MEQ/L (21-32); CHLORIDE LEVEL 106 MEQ/L (98-107); GLOMERULAR FILTRATION RATE > 60.0 (>60); GLUCOSE, FASTING 139 MG/DL (70-100); LIPASE 67 U/L (73-393); POTASSIUM SERUM 4.2 MEQ/L (3.5-5.1); SODIUM LEVEL 136 MEQ/L (136-145); TOTAL PROTEIN 7.3 GM/DL (6.4-8.2)
[2020-04-17] MEDS: FAMOTIDINE 20 MG TAB PO SCH (09:00)
[2020-04-17] MEDS: FLUoxetine 20 MG CAP PO SCH (09:00)
[2020-04-17] MEDS: CYANOCOBALAMIN 500 MCG TAB PO SCH (09:00)
[2020-04-17 09:17] LABS: AMPHETAMINES LEVEL URINE NEGATIVE (NEGATIVE); BARBITURATES URINE NEGATIVE (NEGATIVE); BENZODIAZEPINES URINE NEGATIVE (NEGATIVE); CANNABINOIDS URINE POSITIVE (NEGATIVE); COCAINE METABOLITE URINE NEGATIVE (NEGATIVE); METHADONE URINE NEGATIVE (NEGATIVE); OPIATES URINE NEGATIVE (NEGATIVE); PHENCYCLIDINE URINE NEGATIVE (NEGATIVE)
--- NOTE | 2020-04-17 10:05 | REPVR ---
PROCEDURE INFORMATION: Exam: US Retroperitoneal Limited, Kidneys Exam date and time: 04/17/2020 9:51 AM Age: 29 years old Clinical indication: Vomiting; ; Additional info: Nausea/vomiting, HX stones, R/O hn TECHNIQUE: Imaging protocol: Real-time ultrasound of the retroperitoneum with image documentation. Examination was focused on the kidneys. COMPARISON: No relevant prior studies available. FINDINGS: Right kidney: Right kidney measures 11.2 cm in length. No renal mass, calculus, or hydronephrosis. Left kidney: Left kidney measures 12.2 cm in length. No renal mass, calculus, or hydronephrosis. Bladder: Nondistended bladder. IMPRESSION: No acute sonographic abnormality in the visualized kidneys and upper collecting systems. Electronically signed by: Dre Braxton On 04/17/2020 10:05:29 AM
--- NOTE | 2020-04-17 10:07 | REPVR ---
PROCEDURE INFORMATION: Exam: US First Trimester, Transabdominal Exam date and time: 04/17/2020 9:51 AM Age: 29 years old Clinical indication: Lmp or gestational age (in weeks): 7wks; Antepartum complications; Other: Vomiting; ; Additional info: Nausea/vomiting TECHNIQUE: Imaging protocol: Real-time transabdominal obstetrical ultrasound of the maternal pelvis and a first trimester , less than 14 weeks 0 days, with image documentation. COMPARISON: RENAL US 04/17/2020 9:32 AM FINDINGS: Gestation: Intrauterine gestational sac containing yolk sac and pole. Based on the crown-rump length measurement of 10 mm, the estimated gestational age is 7 weeks +1 day, with an CIRILO of 12/03/20. Embryonic/ heart rate: Documented cardiac activity with a heart rate of 156 bpm. MATERNAL: Uterus: Unremarkable. Right adnexa: Right ovary measures 2.4 x 1.7 x 1.6 cm. Right ovarian blood flow demonstrated. Left adnexa: Left ovary measures 2.1 by 1.7 x 3.3 cm. Left ovarian blood flow demonstrated. Intraperitoneal space: No significant free fluid. IMPRESSION: Intrauterine gestational sac containing yolk sac and pole. Based on the crown-rump length measurement of 10 mm, the estimated gestational age is 7 weeks +1 day, with an CIRILO of 12/03/20. Electronically signed by: Dre Braxton On 04/17/2020 10:07:26 AM
[2020-04-17] MEDS ORDERED: ONDANSETRON 4MG/2ML VIAL IV ONE (11:45)
[2020-04-17] MEDS ORDERED: PRENTAB53 PO (12:27)
[2020-04-17] MEDS ORDERED: FAMO40TA3 PO (12:27)
[2020-04-17] MEDS ORDERED: GABA-843 PO (12:27)
[2020-04-17] MEDS ORDERED: LEVO25TA34 PO (12:27)
[2020-04-17] MEDS ORDERED: CYCLOBENZAPRINE 10MG TABLET PO PRN (12:45)
[2020-04-17] MEDS ORDERED: clonazePAM 0.5 MG TAB PO PRN (12:45)
[2020-04-17] MEDS: GABAPENTIN 300 MG CAP PO SCH ×4 (16:00→21:00)
[2020-04-17 16:10] VITALS: BP 135/65
[2020-04-17] MEDS: ONDANSETRON 4MG/2ML VIAL IV PRN ×2 (16:22→21:36)
[2020-04-17] MEDS: KCL 20MEQ IN D5/0.45NS 1000ML 1,000 ML IV SCH (16:22)
[2020-04-17] MEDS: HYDROXYCHLOROQUINE 200 MG TAB PO SCH (21:00)
[2020-04-17 22:00] VITALS: BP 146/89
[2020-04-18] VITALS: BP 115/66
[2020-04-18] MEDS: KCL 20MEQ IN D5/0.45NS 1000ML 1,000 ML IV SCH ×3 (00:57→16:42)
[2020-04-18] MEDS: ONDANSETRON 4MG/2ML VIAL IV PRN ×3 (02:11→08:56)
[2020-04-18] MEDS: LEVOTHYROXINE 25MCG TABLET (0.025MG) PO SCH (05:34)
[2020-04-18 06:00] VITALS: BP 142/81
[2020-04-18 06:34] LABS: HEMOGLOBIN 11.2 g/dl (12.0-15.5); MEAN CORPUSCULAR HEMOGLOBIN 29.5 pg (27.0-33.0); MEAN CORPUSCULAR HGB CONC 32.9 g/dl (32.0-36.5); MEAN CORPUSCULAR VOLUME 89.5 fl (80.0-96.0); PLATELET COUNT, AUTOMATED 290 10^3/uL (150-450); WHITE BLOOD COUNT 10.8 10^3/uL (4.0-10.0)
[2020-04-18 06:56] LABS: BLOOD UREA NITROGEN 7 MG/DL (7-18); CALCIUM LEVEL 9.4 MG/DL (8.5-10.1); CARBON DIOXIDE LEVEL 23 MEQ/L (21-32); CHLORIDE LEVEL 107 MEQ/L (98-107); GLOMERULAR FILTRATION RATE > 60.0 (>60); GLUCOSE, FASTING 108 MG/DL (70-100); POTASSIUM SERUM 3.9 MEQ/L (3.5-5.1); SODIUM LEVEL 137 MEQ/L (136-145)
[2020-04-18] MEDS: GABAPENTIN 300 MG CAP PO SCH ×4 (08:56→16:00)
[2020-04-18] MEDS: FLUoxetine 20 MG CAP PO SCH (08:57)
[2020-04-18] MEDS: CYANOCOBALAMIN 500 MCG TAB PO SCH (08:57)
[2020-04-18] MEDS: HYDROXYCHLOROQUINE 200 MG TAB PO SCH ×2 (08:57→21:00)
[2020-04-18] MEDS: FAMOTIDINE 20 MG TAB PO SCH (08:57)
[2020-04-18 14:00] VITALS: BP 127/92
[2020-04-18] MEDS: diphenhydrAMINE 50MG/ML VIAL (J1200) IM PRN ×2 (14:57→21:45)
[2020-04-18] MEDS ORDERED: FOLIC ACID 1 MG in NS 50 ML IV SCH (16:00)
[2020-04-18] MEDS: FOLIC ACID 1 MG in NS 50 ML IV SCH (16:37)
--- NOTE | 2020-04-18 19:29 | CR.PDOC ---
General Date of Consultation: Apr 18, 2020 Consultation REASON FOR CONSULTATION/CHIEF COMPLAINT: intractable nausea/vomiting in HISTORY OF PRESENT ILLNESS: Maycol is a 29yo with SIUP at 7w2d by TAUS (unknown lmp, irregular periods) admitted by internal medicine team for intractable nausea/vomiting. She has a complicated GI history significant for gastric bypass in 2018 preceded by episodes of intractable nausea/vomiting since 2016 for which she is seen by GI Dr. Gonzalez in [place]. She notes that his recent recommendation in February was for placement of feeding tube. She has had prior admissions for intractable n/v that were thought to be related to use of cannabis. She has been using cannabis recreationally since age 13 and she smokes it near daily- does not use edibles, does not vape. She does not believe her episodes of intractable n/v are related to cannabis use. She notes she has been cutting back since discovery of . She is quite nervous about this stating, "I am too unhealthy to carry a baby." The is desired- she thought she was not capable of becoming since she was previously diagnosed with PCOS and has irregular periods- even after losing >150 pounds with her gastric bypass surgery. She has no obstetric complaints- no vaginal bleeding, uterine cramping. ALLERGIES: Please see below. HOME MEDICATIONS: Please see below. PAST MEDICAL HISTORY: 1. SLE (on hydroxychloroquine) 2. neuropathy- reports hands intermittently have a burning sensation (gabapentin) 3. hypothyroidism (synthroid) 4. anxiety (prozac) 5. migraines (nortriptyline- hasn't taken for 2 months) 6. asthma (albuterol and nebulizer) 7. nephrolithiasis (renal ultrasound yesterday showed no current nephrolithiasis) 8. PCOS 9. KRISTOPHER (has CPAP but does not use it) 10. GI issues: s/p gastric bypass, episodes of intractable n/v, hx of diverticulitis/colitis (zofran) MANAGER BIOLOGICS HISTORY: No hx of abnormal papsmears, last pap was a year ago No hx of STDs LMP unknown, irregular cycles due to PCOS PAST SURGICAL HISTORY: -open cholecystectomy 2007 -gastric bypass with reduction of hernia(?) 2019 -urethral stents 2013, basket retrieval of nephroliths 2014 -right knee arthroscopy FAMILY HISTORY: MGF recently from liver cancer SOCIAL HISTORY: Not , has a boyfriend Tobacco use: Had stopped smoking up until a year ago when she started smoking again, was smoking approx 5cig/day but with knowledge of she has cut back to 1-2 cig/day and would like to stop completely ETOH: rare maybe 1 drink/month Illicit drug use: generally smokes marijuana daily PHYSICAL EXAMINATION: VITAL SIGNS: Please see below. GENERAL APPEARANCE: NAD, resting comfortably ABDOMEN: soft, NTTP, non-distended EXTREMITIES: no edema of BLE PSYCHIATRIC: pleasant, conversant, appropriate LABORATORY DATA: Please see below. Concentrated urine with trace ketones noted, specific gravity 1.028. Creatinine 0.4. LFTs wnl. UDS + cannabis ASSESSMENT: Maycol is a 29yo with SIUP at 7w2d by TAUS (unknown lmp, irregular periods) admitted by internal medicine team for intractable nausea/vomiting. She has a complicated GI history significant for gastric bypass in 2019 preceded by episodes of intractable nausea/vomiting since 2016 for which she is seen by GI. Complicating the picture, she is now 7 weeks , and has history of SLE and daily cannabis use. BPs are normotensive to mild range (no known hypertension diagnosis), exam benign. Urinalysis shows evidence of dehydration and UDS positive for cannabis. PLAN: -Would recommend for intractable nausea/vomiting to continue IV hydration, zofran IV prn, phenergan IV prn with eventual goal of switching to PO zofran and [place] phenergan. Can also consider vitamin B6 and Unisom if patient will tolerate to reduce baseline nausea. -Continue hydroxychloroquine for SLE -Continue synthroid for hypothyroidism -Continue prozac for anxiety -Discussed discontinuing gabapentin if patient does not need the medication, but ok to continue if medication is truly needed and then must supplement daily folic acid (in addition to vitamin) -Discussed with patient that more and more evidence is emerging that marijuana is harmful to infants when their mothers use it during , specifically in causing behavioral disorders such as ADHD, etc. Patient understands this and states she is committed to trying to quit use during . -Continue albuterol and nebulizer for asthma -Patient to keep scheduled visit in the [facility] clinic on 03 May. We discussed that while she is high risk for her SLE and GI issues, we will be following her closely in conjunction with GI and the center in [place] where we will refer her to for MFM recommendations that we will follow. She will have growth scans and increased monitoring during , etc. -Discussed return precautions for after discharge from an obstetric standpoint Milady Brown MD Vital Signs/I&O Vital Signs Date Time Temp Pulse Resp B/P (MAP) Pulse Ox O2 Delivery O2 Flow Rate FiO2 04/18/20 14:00 96 20 127/92 (104) 98 Room Air 04/18/20 06:00 98.4 I&O- Last 24 Hours up to 6 AM 04/18/20 06:00 Intake Total 2880 ml Output Total 1860 ml Balance 1020 ml Laboratory Data Labs 24H Laboratory Tests 2 04/18/20 05:55: Nucleated Red Blood Cells % (auto) 0.0, Anion Gap 7L, Glomerular Filtration Rate > 60.0, Calcium Level 9.4 CBC/BMP Laboratory Tests 04/18/20 05:55 Allergies Coded Allergies: capsaicin (Verified Allergy, Intermediate, rash, 06/08/19) Sulfa (Sulfonamide Antibiotics) (Verified Allergy, Unknown, 06/08/19) TAPE (Verified Allergy, Unknown, 06/08/19) ciprofloxacin (Verified Allergy, Unknown, 06/08/19) clindamycin (Verified Allergy, Unknown, 06/08/19) hydromorphone (Verified Allergy, Unknown, 06/08/19) latex (Verified Allergy, Unknown, 06/08/19) morphine (Verified Allergy, Unknown, 06/08/19) Home Medications Scheduled Cyanocobalamin (Vitamin B-12) (Vitamin B-12) 1,000 Mcg Tab, 1,000 MCG PO DAILY, (Reported) Famotidine (Famotidine) 40 Mg Tablet, 40 MG PO DAILY, (Reported) Fluoxetine Hcl (Fluoxetine HCl) 20 Mg Capsule, 20 MG PO DAILY, (Reported) Gabapentin (Gabapentin) 600 Mg Tablet, 600 MG PO TID, (Reported) 900MG TOTAL TID Gabapentin (Gabapentin) 300 Mg Capsule, 300 MG PO TID, (Reported) 900MG TOTAL TID Hydroxychloroquine Sulfate (Hydroxychloroquine Sulfate) 200 Mg Tab, 200 MG PO BID, (Reported) Levothyroxine Sodium (Levoxyl) 25 Mcg Tablet, 25 MCG PO DAILY, (Reported) Vit,Calc76/Iron/Folic (Prenatabs Rx Tablet) 1 Each Tablet, 1 TAB PO DAILY, (Reported) Scheduled PRN Clonazepam (Clonazepam) 0.5 Mg Tablet, 0.5 MG PO TID PRN for ANXIETY, (Reported) Cyclobenzaprine HCl (Cyclobenzaprine HCl) 10 Mg Tablet, 10 MG PO TID PRN for MUSCLE SPASMS, (Reported) Ondansetron (Ondansetron Odt) 4 Mg Tab.rapdis, 4 MG PO QID PRN for NAUSEA, (Reported) Milady Brown MD Apr 18, 2020 19:29
--- NOTE | 2020-04-18 21:28 | IPNPDOC ---
Subjective Date Seen The patient was seen on 04/18/20. Subjective Chief Complaint/HPI Mrs. Trevino is a 29 year old female who is 7 weeks here with hyperemesis secondary to marijuana use. This morning, she still has nausea, vomiting, and abdominal pain from dry heaving. She also reports chills. Otherwise denies chest pain, dyspnea, or dysuria. This afternoon, she became anxious about the and requested OB consultation. Recommendations appreciated. Constitutional: Reports: Chills; Denies: Fever Pulmonary: Denies: Dyspnea Cardiovascular: Denies: Chest Pain Gastrointestinal: Reports: Nausea, Abdominal Pain Genitourinary: Denies: Dysuria Objective Physical Examination General Exam: Positive: Alert, Cooperative, Moderate Distress Eye Exam: Positive: EOMI; Negative: Sclera icteric ENT Exam: Positive: Atraumatic Neck Exam: Positive: Supple Chest Exam: Positive: Clear to auscultation Heart Exam: Positive: Rate Normal, Regular Rhythm Abdomen Exam: Positive: BS Hypoactive, Soft, Tenderness (mild) Extremity Exam: Positive: Edema (mild bilateral pitting edema) Neuro Exam: Positive: Cranial Nerves 3-12 NL Psych Exam: Positive: Anxiety Assessment /Plan Assessment Mrs. Trevino is a 29 year old female who is 7 weeks here with hyperemesis secondary to marijuana use. Today, she is still having nausea with dry heaving. We will continue clear liquids until she is able to tolerate a diet. Otherwise, OB has been consulted and recommendations appreciated. Plan/VTE VTE Prophylaxis Ordered?: Yes Plan 1. Hyperemesis secondary to marijuana use -Supportive care with hydration, Zofran PRN, and diphenhydramine PRN -OB following, also recommending IV Phenergan PRN. Can consider vitamin B6 and Unisom if needed 2. -First , unplanned. Denies history of miscarriages -She has visit at [facility] on 05/03/2020 -Added on Folic Acid -OB following recommendations appreciated 3. SLE -On Plaquenil 4. Neuropathy - On Gabapentin - Discontinued due to refusing medication at this time - If needed, can add back on as long as she take folic acid 5. Hypothyroidism - continue levothyroxine 6. Anxiety - Prozac 7. Asthma - Continue nebulizers PRN 8. DVT ppx - SCD and TEDs VS, I&O, 24H, Fishbone Vital Signs/I&O Vital Signs Date Time Temp Pulse Resp B/P (MAP) Pulse Ox O2 Delivery O2 Flow Rate FiO2 04/18/20 14:00 96 20 127/92 (104) 98 Room Air 04/18/20 06:00 98.4 I&O- Last 24 Hours up to 6 AM 04/18/20 06:00 Intake Total 2880 ml Output Total 1860 ml Balance 1020 ml Laboratory Data 24H LABS Laboratory Tests 2 04/18/20 05:55: Nucleated Red Blood Cells % (auto) 0.0, Anion Gap 7L, Glomerular Filtration Rate > 60.0, Calcium Level 9.4 CBC/BMP Laboratory Tests 04/18/20 05:55 DEVIN ISRAEL DO Apr 18, 2020 21:28
[2020-04-18 22:00] VITALS: BP 132/63
[2020-04-19] MEDS: KCL 20MEQ IN D5/0.45NS 1000ML 1,000 ML IV SCH ×3 (01:12→13:27)
[2020-04-19] MEDS: PROMETHAZINE INJ 25 MG/ML VIAL (J2550) IV PRN ×3 (04:18→20:46)
[2020-04-19 06:00] VITALS: BP 133/75
[2020-04-19] MEDS: LEVOTHYROXINE 25MCG TABLET (0.025MG) PO SCH (06:05)
[2020-04-19 06:48] LABS: HEMOGLOBIN 11.6 g/dl (12.0-15.5); MEAN CORPUSCULAR HEMOGLOBIN 29.3 pg (27.0-33.0); MEAN CORPUSCULAR HGB CONC 33.1 g/dl (32.0-36.5); MEAN CORPUSCULAR VOLUME 88.4 fl (80.0-96.0); PLATELET COUNT, AUTOMATED 302 10^3/uL (150-450); RED BLOOD COUNT 3.96 10^6/uL (4.00-5.40); WHITE BLOOD COUNT 10.7 10^3/uL (4.0-10.0)
[2020-04-19 07:16] LABS: BLOOD UREA NITROGEN 4 MG/DL (7-18); CALCIUM LEVEL 9.2 MG/DL (8.5-10.1); CARBON DIOXIDE LEVEL 23 MEQ/L (21-32); CHLORIDE LEVEL 108 MEQ/L (98-107); CREATININE FOR GFR 0.36 MG/DL (0.55-1.30); FREE T3 2.6 PG/ML (2.2-4.0); FREE T4 1.18 NG/DL (0.76-1.46); GLOMERULAR FILTRATION RATE > 60.0 (>60); GLUCOSE, FASTING 92 MG/DL (70-100); POTASSIUM SERUM 3.8 MEQ/L (3.5-5.1); SODIUM LEVEL 138 MEQ/L (136-145); THYROID STIMULATING HORMONE 0.402 uIU/ML (0.358-3.740)
[2020-04-19] MEDS: FLUoxetine 20 MG CAP PO SCH (09:15)
[2020-04-19] MEDS: FAMOTIDINE 20 MG TAB PO SCH (09:15)
[2020-04-19] MEDS: HYDROXYCHLOROQUINE 200 MG TAB PO SCH ×2 (09:16→19:47)
[2020-04-19] MEDS: CYANOCOBALAMIN 500 MCG TAB PO SCH (09:16)
[2020-04-19 14:00] VITALS: BP 120/74
[2020-04-19] MEDS: FOLIC ACID 1 MG in NS 50 ML IV SCH (17:08)
--- NOTE | 2020-04-19 18:27 | IPNPDOC ---
Subjective Date Seen The patient was seen on 04/19/20. Subjective Chief Complaint/HPI Mrs. Trevino is a 29 year old female who is 7 weeks here with hyperemesis secondary to marijuana use. This morning, she still has nausea and is not able to tolerate a diet. Continuing supportive care. Otherwise, she reports chills and denies chest pain, dyspnea, or dysuria. Constitutional: Reports: Chills Pulmonary: Denies: Dyspnea Cardiovascular: Denies: Chest Pain Gastrointestinal: Reports: Nausea, Abdominal Pain (from dry heaving) Genitourinary: Denies: Dysuria Objective Physical Examination General Exam: Positive: Alert, Cooperative, Moderate Distress Eye Exam: Positive: EOMI; Negative: Sclera icteric ENT Exam: Positive: Atraumatic Neck Exam: Positive: Supple Chest Exam: Positive: Clear to auscultation Heart Exam: Positive: Rate Normal, Regular Rhythm Abdomen Exam: Positive: BS Hypoactive, Soft, Tenderness (mild) Extremity Exam: Positive: Edema (mild bilateral pitting edema) Neuro Exam: Positive: Cranial Nerves 3-12 NL Psych Exam: Positive: Anxiety Assessment /Plan Assessment Mrs. Trevino is a 29 year old female who is 7 weeks here with hyperemesis secondary to marijuana use. Today, she is still having nausea with d ry heaving. We will continue clear liquids until she is able to tolerate a diet. Otherwise, OB has been consulted and recommendations appreciated. Dispo pending ability to tolerate a diet. Plan/VTE VTE Prophylaxis Ordered?: Yes Plan 1. Hyperemesis secondary to marijuana use -Supportive care with hydration, Zofran PRN, and diphenhydramine PRN -OB following, also recommending IV Phenergan PRN. Can consider vitamin B6 and Unisom if needed 2. -First , unplanned. Denies history of miscarriages -She has visit at [facility] on 05/03/2020 -Added on Folic Acid -OB following recommendations appreciated 3. SLE -On Plaquenil 4. Neuropathy - On Gabapentin - Discontinued due to refusing medication at this time - If needed, can add back on as long as she take folic acid 5. Hypothyroidism - continue levothyroxine 6. Anxiety - Prozac 7. Asthma - Continue nebulizers PRN 8. DVT ppx - SCD and TEDs Dispo: pending ability to tolerate a diet VS, I&O, 24H, Fishbone Vital Signs/I&O Vital Signs Date Time Temp Pulse Resp B/P (MAP) Pulse Ox O2 Delivery O2 Flow Rate FiO2 04/19/20 14:00 98.0 72 16 120/74 (89) 97 Room Air I&O- Last 24 Hours up to 6 AM 04/19/20 06:00 Intake Total 3010.2 ml Output Total 2600 ml Balance 410.2 ml Laboratory Data 24H LABS Laboratory Tests 2 04/19/20 05:57: Nucleated Red Blood Cells % (auto) 0.0, Anion Gap 7L, Glomerular Filtration Rate > 60.0, Calcium Level 9.2, Thyroid Stimulating Hormone (TSH) 0.402, Free Thyroxine 1.18, Free Triiodothyronine 2.6 CBC/BMP Laboratory Tests 04/19/20 05:57 DEVIN ISRAEL DO Apr 19, 2020 18:27
[2020-04-19 22:00] VITALS: BP 121/72
[2020-04-20] MEDS: KCL 20MEQ IN D5/0.45NS 1000ML 1,000 ML IV SCH ×4 (01:54→21:50)
[2020-04-20] MEDS: PROMETHAZINE INJ 25 MG/ML VIAL (J2550) IV PRN ×2 (05:35→21:54)
[2020-04-20] MEDS: LEVOTHYROXINE 25MCG TABLET (0.025MG) PO SCH (05:35)
[2020-04-20 06:00] VITALS: BP 119/72
[2020-04-20 06:40] LABS: HEMATOCRIT 33.6 % (36.0-47.0); MEAN CORPUSCULAR HEMOGLOBIN 29.3 pg (27.0-33.0); MEAN CORPUSCULAR HGB CONC 32.7 g/dl (32.0-36.5); MEAN CORPUSCULAR VOLUME 89.6 fl (80.0-96.0); PLATELET COUNT, AUTOMATED 265 10^3/uL (150-450); RED BLOOD COUNT 3.75 10^6/uL (4.00-5.40); WHITE BLOOD COUNT 7.9 10^3/uL (4.0-10.0)
[2020-04-20 07:18] LABS: BLOOD UREA NITROGEN 7 MG/DL (7-18); CALCIUM LEVEL 9.1 MG/DL (8.5-10.1); CARBON DIOXIDE LEVEL 24 MEQ/L (21-32); CHLORIDE LEVEL 106 MEQ/L (98-107); GLOMERULAR FILTRATION RATE > 60.0 (>60); GLUCOSE, FASTING 76 MG/DL (70-100); POTASSIUM SERUM 3.8 MEQ/L (3.5-5.1); SODIUM LEVEL 137 MEQ/L (136-145)
[2020-04-20] MEDS: FLUoxetine 20 MG CAP PO SCH (09:09)
[2020-04-20] MEDS: CYANOCOBALAMIN 500 MCG TAB PO SCH (09:09)
[2020-04-20] MEDS: ONDANSETRON 4MG/2ML VIAL IV PRN ×2 (09:09→16:40)
[2020-04-20] MEDS: FAMOTIDINE 20 MG TAB PO SCH (09:09)
[2020-04-20] MEDS: HYDROXYCHLOROQUINE 200 MG TAB PO SCH ×2 (09:09→20:08)
[2020-04-20 14:00] VITALS: BP 138/8
[2020-04-20] MEDS: FOLIC ACID 1 MG in NS 50 ML IV SCH (16:40)
--- NOTE | 2020-04-20 17:05 | IPNPDOC ---
Subjective Date Seen The patient was seen on 04/20/20. Subjective Chief Complaint/HPI Mrs. Trevino is a 29 year old female who is 7 weeks here with hyperemesis secondary to marijuana use. Nausea present, but improving. Vomiting and dry heaving less. Continuing supportive care and clear liquid diet. Otherwise, she reports chills and denies chest pain, dyspnea, or dysuria. Constitutional: Reports: Chills Pulmonary: Denies: Dyspnea Cardiovascular: Denies: Chest Pain Gastrointestinal: Reports: Abdominal Pain (from dry heaving and vomiting) Genitourinary: Denies: Dysuria Objective Physical Examination General Exam: Positive: Alert, Cooperative Eye Exam: Positive: EOMI; Negative: Sclera icteric ENT Exam: Positive: Atraumatic Neck Exam: Positive: Supple Chest Exam: Positive: Clear to auscultation Heart Exam: Positive: Rate Normal, Regular Rhythm Abdomen Exam: Positive: BS Hypoactive, Soft, Tenderness (mild) Extremity Exam: Positive: Edema (mild bilateral pitting edema) Neuro Exam: Positive: Cranial Nerves 3-12 NL Psych Exam: Positive: Anxiety Assessment /Plan Assessment Mrs. Trevino is a 29 year old female who is 7 weeks here with hyperemesis secondary to marijuana use. OB has been consulted and recommendations appreciated. Today, nausea and dry heaving improved. Anticipating solid diet tomorrow and possible discharge tomorrow if she tolerates a diet. Plan/VTE VTE Prophylaxis Ordered?: Yes Plan 1. Hyperemesis secondary to marijuana use -Supportive care with hydration, Zofran PRN, and diphenhydramine PRN -OB following, also recommending IV Phenergan PRN. Can consider vitamin B6 and Unisom if needed 2. -First , unplanned. Denies history of miscarriages -She has visit at [facility] on 05/03/2020 -Added on Folic Acid -OB following recommendations appreciated 3. SLE -On Plaquenil 4. Neuropathy - On Gabapentin - Discontinued due to refusing medication at this time - If needed, can add back on as long as she take folic acid 5. Hypothyroidism - continue levothyroxine 6. Anxiety - Prozac 7. Asthma - Continue nebulizers PRN 8. DVT ppx - SCD and TEDs Dispo: pending ability to tolerate a solid diet VS, I&O, 24H, Fishbone Vital Signs/I&O Vital Signs Date Time Temp Pulse Resp B/P (MAP) Pulse Ox O2 Delivery O2 Flow Rate FiO2 04/20/20 14:00 98.0 72 17 138/8 (51) 100 Room Air I&O- Last 24 Hours up to 6 AM 04/20/20 06:00 Intake Total 2155.2 ml Output Total 3300 ml Balance -1144.8 ml Laboratory Data 24H LABS Laboratory Tests 2 04/20/20 05:58: Nucleated Red Blood Cells % (auto) 0.0, Anion Gap 7L, Glomerular Filtration Rate > 60.0, Calcium Level 9.1 CBC/BMP Laboratory Tests 04/20/20 05:58 DEVIN ISRAEL DO Apr 20, 2020 17:05
[2020-04-20 18:00] VITALS: BP 138/82
[2020-04-20 22:00] VITALS: BP 124/65
[2020-04-21] MEDS: ONDANSETRON 4MG/2ML VIAL IV PRN (05:37)
[2020-04-21] MEDS: LEVOTHYROXINE 25MCG TABLET (0.025MG) PO SCH (05:37)
[2020-04-21] MEDS: KCL 20MEQ IN D5/0.45NS 1000ML 1,000 ML IV SCH (05:40)
[2020-04-21 05:57] LABS: BLOOD UREA NITROGEN 6 MG/DL (7-18); CALCIUM LEVEL 9.2 MG/DL (8.5-10.1); CARBON DIOXIDE LEVEL 27 MEQ/L (21-32); CHLORIDE LEVEL 107 MEQ/L (98-107); CREATININE FOR GFR 0.38 MG/DL (0.55-1.30); GLOMERULAR FILTRATION RATE > 60.0 (>60); GLUCOSE, FASTING 81 MG/DL (70-100); POTASSIUM SERUM 4.1 MEQ/L (3.5-5.1); SODIUM LEVEL 139 MEQ/L (136-145)
[2020-04-21 06:00] VITALS: BP 122/65
[2020-04-21] MEDS: FAMOTIDINE 20 MG TAB PO SCH (08:21)
[2020-04-21] MEDS: HYDROXYCHLOROQUINE 200 MG TAB PO SCH (08:21)
[2020-04-21] MEDS: FLUoxetine 20 MG CAP PO SCH (08:21)
[2020-04-21] MEDS: CYANOCOBALAMIN 500 MCG TAB PO SCH (08:21)
--- NOTE | 2020-04-21 16:11 | HPE ---
DATE OF ADMISSION: 04/17/2020 CHIEF COMPLAINT: Intractable vomiting, approximately 16 week . HISTORY OF PRESENT ILLNESS: Maycol Cantor is 29 years old. She has been admitted in the past for repetitive vomiting syndrome attributed to daily marijuana use. She found out about a week ago that she was . Per emergency room physician it is approximately a 16 week gestation. She has been unable to keep anything down. Came to the emergency room. She denies any hematemesis. Per nursing staff there is not actually any emesis. It is retching and nausea and there has been no vomitus seen. There is no abdominal pain, fevers or chills, dysuria, flank pain, vaginal bleeding, or spotting or rectal bleeding. 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 PAST SURGICAL HISTORY: Cholecystectomy. SOCIAL HISTORY: Daily cannabis use. No alcohol. FAMILY HISTORY: Diabetes and coronary artery disease. ALLERGIES: See Vessel list. HOME MEDICATIONS: - Clonazepam 0.5 mg three times a day p.r.n. - Vitamin B12 1000 mcg daily - Cyclobenzaprine 10 mg daily p.r.n. - Famotidine 40 mg daily - Fluoxetine 20 mg daily - Gabapentin 900 mg three times a day (300 plus 600 mg three times a day) - Plaquenil 200 mg twice a day - Levothyroxine 25 mcg daily - Zofran p.r.n. - She just started multivitamin REVIEW OF SYSTEMS: As above, otherwise negative. PHYSICAL EXAMINATION: Vital signs per flow sheet. Blood pressure 143/70, afebrile. General appearance: Alert, conversant, no acute distress. Pupils equal, round and reactive to light. Tympanic membranes and oropharynx show dry mucous membranes. Neck is supple. Lungs are clear without murmur. Abdomen soft and nontender with no masses. Extremities without clubbing, cyanosis, or edema. Normal strength in the arms and legs. LABS: White count 15.8, hemoglobin 12.7, platelets 371. Sodium 136, potassium 4.3, BUN 10, creatinine 0.6. Glucose 139. Liver functions normal. Lipase normal. Renal ultrasound was unremarkable. Obstetric ultrasound shows less than 14 week first trimester . IMPRESSION: 1. Intractable vomiting. The patient has persistent cyclical vomiting syndrome presumably from daily marijuana use. She will be admitted to a medical bed, observation status, rehydrated, advance diet as tolerated. Cessation of daily marijuana use discussed with the patient. Toxicology screen was positive for cannabinoids. 2. First trimester . Currently not complicated and probably unrelated to her current nausea and vomiting. This has occurred out of the context of . It is her first gestation. She will need obstetrical care after discharge. 3. Hypothyroidism. Continue levothyroxine. 4. Fibromyalgia. Continue current medications for this. 5. Neuropathy. Continue her Gabapentin at current dose 900 mg three times a day. edited: 05/06/2020 [id number]
--- NOTE | 2020-04-21 19:09 | DS.PDOC ---
Discharge Summary General Date of Admission Apr 18, 2020 at 15:59 Date of Discharge Apr 21, 2020 Attending Physician: DEVIN ISRAEL DO Specialist/Consultants [facility] Milady Discharge Summary PROCEDURES PERFORMED DURING STAY: None. ADMITTING DIAGNOSES: 1. Intractable vomiting 2. First trimester 3. Hypothyroidism 4. Fibromyalgia 5. Neuropathy. DISCHARGE DIAGNOSES: 1. Hyperemesis secondary to marijuana use 2. First trimester 3. Hypothyroid 4. SLE 5. Neuropathy 6. Anxiety 7. Asthma COMPLICATIONS/CHIEF COMPLAINT: Cannabinoid Hyperemesis Syndrome. HISTORY OF PRESENT ILLNESS: Mrs. Trevino is a 29-year-old female with history of hyperemesis secondary to daily marijuana use. She recently found out she is one week ago. Ultrasound demonstrates that she is about 7 weeks . Due to her persistent nausea and vomiting, she cannot tolerate a diet. She was provided with supportive care HOSPITAL COURSE: During her hospitalization she requested to see [facility]. They recommended IV Zofran as needed and IV Phenergan as needed. If nausea and vomiting still persists, we could also consider vitamin B6 and Unisom. She is okay to continue the hydroxychloroquine. We discontinued the gabapentin as she did not need it at this time. If she does need gabapentin, then she will need supplemental daily folic acid. Otherwise the [facility] discuss with the patient about marijuana use. There is more evidence emerging that marijuana is harmful to infants and during . Otherwise [facility] also recommended keeping scheduled visit on 05/03/2020. After 3 days, her nausea and vomiting started to subside. She is able to tolerate a solid diet. Today she felt well. She denied any fever or chills, lightheadedness or dizziness, chest pain, dyspnea, dysuria, or diarrhea. She had mild abdominal pain and tenderness se condary to persistent vomiting and dry heaving, but it was improving. I offered to send her home with Zofran, and she declined as she has Zofran at home. She felt ready for home and subsequently was discharged. DISCHARGE MEDICATIONS: Please see below. ALLERGIES: Please see below. PHYSICAL EXAMINATION ON DISCHARGE: VITAL SIGNS: Please see below. GENERAL: Comfortable, in no apparent distress. HEENT: Head normocephalic/atraumatic, EOMI, sclera clear. NECK: Supple, no JVD. RESPIRATORY: Lungs clear to auscultation bilaterally, no rales, wheeze or rhonchi. CARDIOVASCULAR: Regular rate and rhythm. ABDOMEN: Soft, nontender, no guarding or rebound tenderness. Normal bowel sounds. MUSCLE SKELETAL: Muscle strength 5/5 in all extremities. NEUROLOGICAL: CN 312 grossly intact, no focal deficits noted. PSYCHOLOGICAL: Normal mood and affect LABORATORY DATA: Please see below. IMAGING: OB ultrasound Intrauterine gestational sac containing yolk sac and pole. Based on the crown-rump length measurement of 10 mm, the estimated gestational age is 7 weeks +1 day, with an CIRILO of 12/03/20. Embryonic/ heart rate: Documented cardiac activity with a heart rate of 156 bpm. PROGNOSIS: Stable ACTIVITY: As tolerated. DIET: Regular DISCHARGE PLAN: Home DISPOSITION: 01 Home, Self-Care. DISCHARGE INSTRUCTIONS: 1. Follow-up with her PCP within a week 2. Keep appointment with [facility] ( visit). DISCHARGE CONDITION: Stable Total time spent on discharge planning, discharge summary, and med reconciliation 35 minutes Vital Signs/I&Os Vital Signs Date Time Temp Pulse Resp B/P (MAP) Pulse Ox O2 Delivery O2 Flow Rate FiO2 04/21/20 06:00 97.9 76 16 122/65 (84) 98 Room Air I&O- Last 24 Hours up to 6 AM 04/21/20 06:00 Intake Total 2910.2 ml Output Total 4025 ml Balance -1114.8 ml Laboratory Data Labs 24H Laboratory Tests 2 04/21/20 05:13: Anion Gap 5L, Glomerular Filtration Rate > 60.0, Calcium Level 9.2 CBC/BMP Laboratory Tests 04/21/20 05:13 Discharge Medications Scheduled Cyanocobalamin (Vitamin B-12) (Vitamin B-12) 1,000 Mcg Tab, 1,000 MCG PO DAILY, (Reported) Famotidine (Famotidine) 40 Mg Tablet, 40 MG PO DAILY, (Reported) Fluoxetine Hcl (Fluoxetine HCl) 20 Mg Capsule, 20 MG PO DAILY, (Reported) Hydroxychloroquine Sulfate (Hydroxychloroquine Sulfate) 200 Mg Tab, 200 MG PO BID, (Reported) Levothyroxine Sodium (Levoxyl) 25 Mcg Tablet, 25 MCG PO DAILY, (Reported) Vit,Calc76/Iron/Folic (Prenatabs Rx Tablet) 1 Each Tablet, 1 TAB PO DAILY, (Reported) Scheduled PRN Cyclobenzaprine HCl (Cyclobenzaprine HCl) 10 Mg Tablet, 10 MG PO TID PRN for MUSCLE SPASMS, (Reported) Ondansetron (Ondansetron Odt) 4 Mg Tab.rapdis, 4 MG PO QID PRN for NAUSEA, (Reported) Allergies Coded Allergies: capsaicin (Verified Allergy, Intermediate, rash, 06/08/19) Sulfa (Sulfonamide Antibiotics) (Verified Allergy, Unknown, 06/08/19) TAPE (Verified Allergy, Unknown, 06/08/19) ciprofloxacin (Verified Allergy, Unknown, 06/08/19) clindamycin (Verified Allergy, Unknown, 06/08/19) hydromorphone (Verified Allergy, Unknown, 06/08/19) latex (Verified Allergy, Unknown, 06/08/19) morphine (Verified Allergy, Unknown, 06/08/19) DEVIN ISRAEL DO Apr 21, 2020 19:08
== END 2020-04-21 14:12 | disposition home or self-care (01) | DRG 249 ==
LOC: M ED 07:26 → M ED INP 07:27 → ENRESERV 14:09 → M MSPAV 16:05 → OBSVTOIN 04-18 15:59
PROVIDERS: ADMIT Internal Medicine; ATTEND Internal Medicine
DX: R11.15 Cyclical vomiting syndrome unrelated to migraine (principal); M32.9 Systemic lupus erythematosus, unspecified; G62.9 Polyneuropathy, unspecified; F12.188 Cannabis abuse with other cannabis-induced disorder; Z33.1 Pregnant state, incidental; E03.9 Hypothyroidism, unspecified; J45.909 Unspecified asthma, uncomplicated; Z98.84 Bariatric surgery status; M79.7 Fibromyalgia; F41.9 Anxiety disorder, unspecified; Z79.899 Other long term (current) drug therapy; Z88.2 Allergy status to sulfonamides; Z88.1 Allergy status to other antibiotic agents; Z88.5 Allergy status to narcotic agent; Z91.041 Radiographic dye allergy status; Z91.048 Other nonmedicinal substance allergy status

== ENCOUNTER → 2020-05-13 | Outpatient (REF) | payer OTHER ==
[~2020-05-13] MED LIST changes: +FAMO40TA3 PO; +GABA-843 PO; +LEVO25TA34 PO; +PRENTAB53 PO
== END ==
LOC: M PLALAB 10:00
PROVIDERS: ATTEND Obstetrics & Gynecology
DX: O99.841 Bariatric surgery status complicating pregnancy, first trimester (principal)

== ENCOUNTER → 2020-05-24 | Outpatient (CLI) | payer OTHER ==
[2020-05-24 13:53] LABS: HEMATOCRIT 37.5 % (36.0-47.0); HEMOGLOBIN 12.1 g/dl (12.0-15.5); MEAN CORPUSCULAR HEMOGLOBIN 30.1 pg (27.0-33.0); MEAN CORPUSCULAR HGB CONC 32.3 g/dl (32.0-36.5); MEAN CORPUSCULAR VOLUME 93.3 fl (80.0-96.0); PLATELET COUNT, AUTOMATED 323 10^3/uL (150-450); RED BLOOD COUNT 4.02 10^6/uL (4.00-5.40); WHITE BLOOD COUNT 9.2 10^3/uL (4.0-10.0)
[2020-05-24 15:14] LABS: HEPATITIS C VIRUS ABY INDEX 0.1 INDEX (<0.8); HIV 1&2 SCREEN CENTAUR NEGATIVE (NEGATIVE)
== END ==
LOC: M WUC 10:06
PROVIDERS: ATTEND Obstetrics & Gynecology
DX: Z34.82 Encounter for supervision of other normal pregnancy, second trimester (principal); Z3A.00 Weeks of gestation of pregnancy not specified

== ENCOUNTER → 2020-06-11 | Outpatient (REF) | payer OTHER | LOC: M SFHCWAGY 10:04 | PROVIDERS: ATTEND Obstetrics & Gynecology | DX: Z34.92 Encounter for supervision of normal pregnancy, unspecified, second trimester (principal); Z3A.15 15 weeks gestation of pregnancy ==

== ENCOUNTER → 2020-06-28 | Outpatient (CLI) | payer OTHER ==
[2020-06-28 10:37] LABS: APPEARANCE, URINE HAZY (CLEAR); BACTERIA, URINE AUTO 1+ (NEGATIVE); BILIRUBIN, URINE AUTO NEGATIVE (NEGATIVE); BLOOD, URINE BLOOD 1+ (NEGATIVE); CALCIUM OXALATE CRYSTALS LARGE; COLOR, URINE YELLOW (YELLOW); GLUCOSE, URINE (UA) AUTO NEGATIVE (NEGATIVE); KETONE, URINE AUTO NEGATIVE (NEGATIVE); LEUKOCYTE ESTERASE, URINE AUTO NEGATIVE (NEGATIVE); MUCUS, URINE SMALL (NEGATIVE); NITRITE, URINE AUTO NEGATIVE (NEGATIVE); PROTEIN, URINE AUTO NEGATIVE (NEGATIVE); RBC, URINE AUTO 23 /HPF (0-3); SQUAMOUS EPITHELIAL CELL UR AU 1 /HPF (0-6); WBC, URINE AUTO 3 /HPF (0-3)
[2020-06-28 10:39] LABS: BASO % 0.4 % (0.0-1.0); EOS # 0.1 10^3/uL (0.0-0.5); EOS % 1.3 % (0.0-3.0); HEMATOCRIT 32.9 % (36.0-47.0); HEMOGLOBIN 10.5 g/dl (12.0-15.5); LYMPH # 1.5 10^3/uL (1.5-5.0); LYMPH % 14.4 % (24.0-44.0); MEAN CORPUSCULAR HEMOGLOBIN 30.9 pg (27.0-33.0); MEAN CORPUSCULAR HGB CONC 31.9 g/dl (32.0-36.5); MEAN CORPUSCULAR VOLUME 96.8 fl (80.0-96.0); MONO # 0.8 10^3/uL (0.0-0.8); MONO % 7.7 % (0.0-5.0); NEUTROPHILS # 7.8 10^3/uL (1.5-8.5); NEUTROPHILS % 75.5 % (36.0-66.0); PLATELET COUNT, AUTOMATED 305 10^3/uL (150-450); WHITE BLOOD COUNT 10.4 10^3/uL (4.0-10.0)
[2020-06-28 11:11] LABS: TOTAL PROTEIN,RANDOM URINE 20.3 MG/DL (0.0-12.0)
[2020-06-28 11:16] LABS: BLOOD UREA NITROGEN 8 MG/DL (7-18); C REACTIVE PROTEIN QUANTITATIV 0.42 MG/DL (0.00-0.30); CALCIUM LEVEL 8.6 MG/DL (8.5-10.1); CARBON DIOXIDE LEVEL 25 MEQ/L (21-32); CHLORIDE LEVEL 107 MEQ/L (98-107); COMPLEMENT C3 123 MG/DL (90-180); COMPLEMENT C4 26 MG/DL (10-40); CREATININE FOR GFR 0.34 MG/DL (0.55-1.30); GLOMERULAR FILTRATION RATE > 60.0 (>60); GLUCOSE, FASTING 64 MG/DL (70-100); POTASSIUM SERUM 4.3 MEQ/L (3.5-5.1); RHEUMATOID FACTOR QUANT < 10.0 IU/ML (<15.0); SODIUM LEVEL 138 MEQ/L (136-145); TOTAL PROTEIN 6.3 GM/DL (6.4-8.2)
[2020-06-28 11:19] LABS: ERYTHROCYTE SEDIMENTATION RATE 40 mm/hr (0-20)
[2020-07-01 12:06] LABS: ALBUMIN % 53.2 % (55.8-66.1)
[2020-07-01 12:07] LABS: ALBUMIN 3.35 GM/DL (3.29-5.55); ALPHA-1-GLOBULIN % 5.7 % (2.9-4.9); ALPHA-1-GLOBULINS 0.36 GM/DL (0.17-0.41); ALPHA-2-GLOBULINS % 15.8 % (7.1-11.8); BETA-2-GLOBULINS 0.35 GM/DL (0.19-0.55); BETA-2-GLOBULINS % 5.5 % (3.2-6.5); GAMMA GLOBULIN % 11.8 % (11.1-18.8); GAMMA GLOBULINS 0.74 GM/DL (0.65-1.58)
[2020-07-02 13:07] LABS: ANA (HEP2) Negative (.); ANTI CENTROMERE ANTIBODY 0.2 AI (0.0-0.9); ANTI DS-DNA AB Negative (Negative); ANTI JO-1 ANTIBODIES <20 Units (<20); ANTI SCLERODERMA ANTIBODIES <0.2 AI (0.0-0.9); ANTI-HISTONE ANTIBODIES 0.2 Units (0.0-0.9); BETA-2 GLYCOPROTEIN I ABY IGA <9 (0-25); BETA-2 GLYCOPROTEIN I ABY IGG <9 (0-20); BETA-2 GLYCOPROTEIN I ABY IGM <9 (0-32); CARDIOLIPIN IGA ANTIBODY <9 APL U/mL (0-11); CARDIOLIPIN IGG ANTIBODY <9 GPL U/mL (0-14); CARDIOLIPIN IGM ANTIBODY 10 MPL U/mL (0-12); COMPLEMENT TOTAL (CH50) > 60 U/mL (>41); CYCLIC CITRULLINATED PEPTIDE 2 units (0-19); RNP ANTIBODY < 0.2 AI (0.0-0.9); SMITHS ANTIBODY < 0.2 AI (0.0-0.9); SSA SJOGRENS A <0.2 AI (0.0-0.9); SSB SJOGRENS B <0.2 AI (0.0-0.9)
[2020-07-03 11:19] LABS: DRVV SCREEN 30.3 SEC
[2020-07-03 11:25] LABS: PTT LUPUS TYPE ANTICOAG SCREEN 0.7 (0-1.2)
== END ==
LOC: M WUC 08:36
PROVIDERS: ATTEND Internal Medicine
DX: R76.8 Other specified abnormal immunological findings in serum (principal)

== ENCOUNTER → 2020-07-10 | Outpatient (REF) | payer OTHER ==
[~2020-07-10] MED LIST changes: +GABA-282 PO; -GABA-843 PO
== END ==
LOC: M SFHCWAGY 16:54
PROVIDERS: ATTEND Obstetrics & Gynecology
DX: M32.9 Systemic lupus erythematosus, unspecified (principal)

== ENCOUNTER → 2020-07-10 | Outpatient (CLI) | payer OTHER ==
[~2020-07-10] MED LIST changes: -GABA-282 PO; +GABA-843 PO
--- NOTE | 2020-07-10 12:31 | REP ---
INDICATION: ANATOMY. COMPARISON: 04/17/2020. TECHNIQUE: Real-time sonographic evaluation of the gravid uterus performed. FINDINGS: Estimated gestational age is20 weeks 0 days, EDC 11/27/2020. Today's measurements indicate appropriate growth. Presentation: Variable Placenta posterior, grade 1, without evidence of placenta previa. heart rate is recorded at 152 beats per minute. Amniotic fluid is subjectively normal. Closed cervical length is measured at 4.1 cm. Biometry chart: BPD: 46 mm, 20 weeks 0 days, 51st percentile. HC: 170 mm, 19 weeks 4 days, 39th percentile AC: 145 mm, 19 weeks 5 days, 45th percentile Femur length: 31 mm, 19 weeks 3 days, 36th percentile HC to AC ratio: 1.18, normal range 1.06-1.24. Estimated weight: 304g, 27th percentile. anatomy: Cranium: Grossly normal Lateral Ventricles/Choroid Plexus: Grossly normal Posterior Fossa/Cerebellum: Grossly normal Nose/lips/profile: Grossly normal Four chamber heart: Grossly normal Right ventricular outflow tract: Grossly normal Left ventricular outflow tract: Grossly normal Left-sided stomach: Grossly normal Kidneys: Grossly normal Bladder: Grossly normal Cord Insertion: Grossly normal 3 vessel cord: Grossly normal Spine: Grossly normal IMPRESSION: Viable single intrauterine gestation as above. <Electronically signed by David Guadarrama > 07/10/20 [id number]
== END ==
LOC: M WHC 08:44
PROVIDERS: ATTEND Obstetrics & Gynecology
DX: Z36.9 Encounter for antenatal screening, unspecified (principal); Z3A.20 20 weeks gestation of pregnancy

== ENCOUNTER → 2020-08-26 | Outpatient (REF) | payer OTHER ==
[~2020-08-26] MED LIST changes: +GABA-282 PO; -GABA-843 PO
== END ==
LOC: M LAB REF 16:42
PROVIDERS: ATTEND Nurse Practitioner Adult Health
DX: Z34.02 Encounter for supervision of normal first pregnancy, second trimester (principal)

== ENCOUNTER → 2020-09-09 | Outpatient (REF) | payer OTHER ==
[2020-09-09 18:30] LABS: APPEARANCE, URINE HAZY (CLEAR); BACTERIA, URINE AUTO 1+ (NEGATIVE); BILIRUBIN, URINE AUTO NEGATIVE (NEGATIVE); BLOOD, URINE BLOOD NEGATIVE (NEGATIVE); CALCIUM OXALATE CRYSTALS SMALL; COLOR, URINE YELLOW (YELLOW); GLUCOSE, URINE (UA) AUTO NEGATIVE (NEGATIVE); KETONE, URINE AUTO NEGATIVE (NEGATIVE); LEUKOCYTE ESTERASE, URINE AUTO NEGATIVE (NEGATIVE); MUCUS, URINE SMALL (NEGATIVE); NITRITE, URINE AUTO NEGATIVE (NEGATIVE); PROTEIN, URINE AUTO NEGATIVE (NEGATIVE); RBC, URINE AUTO 0 /HPF (0-3); SPECIFIC GRAVITY URINE AUTO 1.018 (1.002-1.035); SQUAMOUS EPITHELIAL CELL UR AU 0 /HPF (0-6); TRANSITIONAL EPITHELIAL AUTO <1 /HPF; WBC, URINE AUTO 2 /HPF (0-3)
== END ==
LOC: M SFHCWAGY 16:50
PROVIDERS: ATTEND Obstetrics & Gynecology
DX: R10.9 Unspecified abdominal pain (principal)

== ENCOUNTER → 2020-09-09 | Outpatient (REF) | payer OTHER ==
[2020-09-09 21:23] LABS: CHLAMYDIA DNA AMPLIFICATION NEGATIVE (NEGATIVE); GC DNA AMPLIFICATION NEGATIVE (NEGATIVE)
== END ==
LOC: M SFHCWAGY 16:54
PROVIDERS: ATTEND Obstetrics & Gynecology
DX: R10.9 Unspecified abdominal pain (principal)

== ENCOUNTER → 2020-09-18 | Outpatient (CLI) | payer OTHER ==
--- NOTE | 2020-09-23 11:06 | REP ---
INDICATION: GROWTH/30 WKS GESTATION/BPP. COMPARISON: 07/10/2020. TECHNIQUE: Real-time sonographic evaluation of the gravid uterus performed. The study is submitted for interpretation 09/23/2020 for reasons unknown to me. FINDINGS: Estimated gestational age is30 weeks 0 days, EDC 11/27/2020. Today's measurements indicate appropriate growth. Presentation: Cephalic Placenta posterior, grade 2, without evidence of placenta previa. heart rate is recorded at 147 beats per minute. Amniotic fluid is subjectively normal. RONEL 16.7, normal range 9.0-23.4. Biophysical profile score 8/8. SD ratio umbilical artery 2.49-2.90, normal range 1.96-4.10. Resistive index 0.60-0.66, normal range 0.52-0.76. Closed cervical length is measured at 3.6 cm. Biometry chart: BPD: 79 mm, 31 weeks 5 days, 75th percentile. HC: 287 mm, 31 weeks 4 days, 73rd percentile AC: 256 mm, is 29 weeks 6 days, 46th percentile Femur length: 57 mm, 30 weeks 0 days, 49th percentile HC to AC ratio: 1.12, normal range 0.97-1.16. Estimated weight: 1521g, 43rd percentile. IMPRESSION: Viable single intrauterine gestation as above. <Electronically signed by David Guadarrama > 09/23/20 1109
== END ==
LOC: M WHC 14:58
PROVIDERS: ATTEND Obstetrics & Gynecology
DX: Z36.89 Encounter for other specified antenatal screening (principal); Z3A.30 30 weeks gestation of pregnancy

== ENCOUNTER → 2020-09-18 | Outpatient (REF) | payer OTHER | LOC: M PLALAB 01:25 | PROVIDERS: ATTEND Obstetrics & Gynecology | DX: Z3A.30 30 weeks gestation of pregnancy (principal); Z53.9 Procedure and treatment not carried out, unspecified reason ==

== ENCOUNTER → 2020-09-20 | Outpatient (REF) | payer OTHER | LOC: M SFHCWAGY 16:45 | PROVIDERS: ATTEND Obstetrics & Gynecology | DX: Z34.93 Encounter for supervision of normal pregnancy, unspecified, third trimester (principal); Z3A.30 30 weeks gestation of pregnancy ==

== ENCOUNTER → 2020-09-26 | Outpatient (CLI) | payer OTHER ==
--- NOTE | 2020-09-26 14:16 | REP ---
INDICATION: BARIATRIC SURGERY,BPP. COMPARISON: 09/18/2020. TECHNIQUE: Real-time sonographic evaluation of the gravid uterus performed. FINDINGS: Estimated gestational age is31 weeks 1 day, EDC 11/27/2020. Presentation: Cephalic Placenta posterior, grade 2, without evidence of placenta previa. heart rate is recorded at 144 beats per minute. Amniotic fluid is subjectively normal. RONEL 14.3, normal range 8.8-23.9. Biophysical profile score 8/8. SD ratio umbilical artery 2.64-2.80, normal range 1.89-3.96. RI 0.62-0.64, normal range 0.51-0.76. Closed cervical length is measured at 3.6 cm. IMPRESSION: Viable single intrauterine gestation as above. <Electronically signed by David Guadarrama > 09/26/20 1115
== END ==
LOC: M WHC 13:25
PROVIDERS: ATTEND Obstetrics & Gynecology
DX: O99.843 Bariatric surgery status complicating pregnancy, third trimester (principal); Z3A.31 31 weeks gestation of pregnancy

== ENCOUNTER → 2020-10-04 | Outpatient (REF) | payer OTHER | LOC: M PLALAB 14:41 | PROVIDERS: ATTEND Obstetrics & Gynecology | DX: Z3A.32 32 weeks gestation of pregnancy (principal) ==

== ENCOUNTER → 2020-10-04 | Outpatient (CLI) | payer OTHER ==
--- NOTE | 2020-10-04 20:06 | REP ---
INDICATION: BARIATRIC SURGERY,BPP. COMPARISON: 09/26/2020. TECHNIQUE: Multiple sonographic images of the gravid uterus. FINDINGS: There is a single intrauterine gestation in a cephalic presentation. The placenta is posterior with grade 2 maturity. There is no placenta previa. Gestational age according to the 1st ultrasound this gestation is 31 weeks 2 days with an CIRILO of 12/04/2020. Gestational age by LMP is 32 weeks 2 days with an CIRILO of 11/27/2020. heart rate is 153 beats per minute. Amniotic fluid volume subjectively is normal. A mat fluid index is 15.1. Normal is 8.5-24.3. Biophysical profile: breathing 2 tone 2 movement 2 Amniotic fluid volume 2 Total score 8/8 Umbilical artery Doppler: ASSESSMENT: Umbilical artery 1: PSV 30.8 centimeters/second EDV 14.6 centimeters/second S/D 2.60 (1.83-3.84) RI 0.62 (0.49-0.75) Umbilical artery 2: PSV 47.2 centimeters/second EDV 14.6 centimeters/second S/D 3.23 RI 0.69 IMPRESSION: biophysical profile as discussed above. <Electronically signed by David Foreman > 10/04/202002
== END ==
LOC: M WHC 13:46
PROVIDERS: ATTEND Obstetrics & Gynecology
DX: O99.843 Bariatric surgery status complicating pregnancy, third trimester (principal); Z3A.32 32 weeks gestation of pregnancy

== ENCOUNTER → 2020-10-10 | Outpatient (CLI) | payer OTHER ==
--- NOTE | 2020-10-10 14:53 | REP ---
INDICATION: BARIATRIC SURGERY STATUS,BPP. COMPARISON: 10/04/2020. TECHNIQUE: Real-time sonographic evaluation of the gravid uterus performed. FINDINGS: Estimated gestational age is33 weeks 1 day, EDC 11/27/2020. Presentation: Cephalic Placenta posterior, grade 2, without evidence of placenta previa. heart rate is recorded at 149 beats per minute. Amniotic fluid is subjectively normal. RONEL 15.1, normal range 8.3-24.5. Biophysical profile score 8/8. SD ratio umbilical artery 3.52, normal range 1.78-3.76. RI 0.72, normal range 0.48-0.74. Closed cervical length is measured at 3.2 cm. IMPRESSION: Viable single intrauterine gestation as above. Biophysical profile score 8/8. <Electronically signed by David Guadarrama > 10/10/20 [id number]
== END ==
LOC: M WHC 13:21
PROVIDERS: ATTEND Obstetrics & Gynecology
DX: O99.843 Bariatric surgery status complicating pregnancy, third trimester (principal); Z3A.30 30 weeks gestation of pregnancy

== ENCOUNTER → 2020-10-10 | Outpatient (REF) | payer OTHER ==
[2020-10-10 15:05] LABS: HEMATOCRIT 32.6 % (36.0-47.0); HEMOGLOBIN 10.4 g/dl (12.0-15.5); MEAN CORPUSCULAR HEMOGLOBIN 29.5 pg (27.0-33.0); MEAN CORPUSCULAR HGB CONC 31.9 g/dl (32.0-36.5); MEAN CORPUSCULAR VOLUME 92.6 fl (80.0-96.0); PLATELET COUNT, AUTOMATED 327 10^3/uL (150-450); RED BLOOD COUNT 3.52 10^6/uL (4.00-5.40); WHITE BLOOD COUNT 12.9 10^3/uL (4.0-10.0)
[2020-10-10 15:43] LABS: FREE T4 0.82 NG/DL (0.76-1.46); THYROID STIMULATING HORMONE 3.05 uIU/ML (0.358-3.740)
== END ==
LOC: M PLALAB 13:53
PROVIDERS: ATTEND Obstetrics & Gynecology
DX: Z3A.32 32 weeks gestation of pregnancy (principal)

== ENCOUNTER → 2020-10-17 | Outpatient (CLI) | payer OTHER ==
--- NOTE | 2020-10-17 14:55 | REP ---
INDICATION: BARIATRIC SURGERY STATUS,BPP. COMPARISON: 10/10/2020. TECHNIQUE: Limited Ob ultrasound with biophysical profile ultrasound. FINDINGS: Today's study shows a single intrauterine gestation in cephalic presentation with a posterior grade 2 placenta and no previa or abruption. The amniotic fluid volume is visually normal with an index of 13.6 in the normal range 8.1-24.8. Three-vessel cord was noted. Cervix is 3.1 cm long and closed. Bili cul artery Doppler shows ST ratio 2.73 for 1st and 2.9 for the 2nd umbilical artery, both with normal forward diastolic flow. heart activity at 158 BPM, regular. Biophysical profile: Breathing 2, tone 2, movement 2, AFV 2. IMPRESSION: Single intrauterine gestation in cephalic presentation with posterior grade 2 placenta without previa or abruption, visualized amniotic fluid volume normal with an index 13.6 and with heart rate 158 and regular. Three-vessel cord with both umbilical arteries showing normal mid course SD ratios and forward diastolic flow. Cervix closed, 3.1 cm long. Biophysical profile score: 8/8. <Electronically signed by Amilcar Herr > 10/17/20 [id number]
== END ==
LOC: M WHC 13:13
PROVIDERS: ATTEND Obstetrics & Gynecology
DX: O99.843 Bariatric surgery status complicating pregnancy, third trimester (principal); Z3A.30 30 weeks gestation of pregnancy

== ENCOUNTER → 2020-10-21 | Outpatient (CLI) | payer OTHER ==
[2020-10-21 13:12] LABS: BASO % 0.3 % (0.0-1.0); EOS # 0.1 10^3/uL (0.0-0.5); EOS % 0.9 % (0.0-3.0); HEMATOCRIT 32.3 % (36.0-47.0); HEMOGLOBIN 10.4 g/dl (12.0-15.5); LYMPH # 1.7 10^3/uL (1.5-5.0); LYMPH % 12.3 % (24.0-44.0); MEAN CORPUSCULAR HEMOGLOBIN 30.3 pg (27.0-33.0); MEAN CORPUSCULAR HGB CONC 32.2 g/dl (32.0-36.5); MEAN CORPUSCULAR VOLUME 94.2 fl (80.0-96.0); MONO # 1.3 10^3/uL (0.0-0.8); MONO % 9.5 % (2.0-8.0); NEUTROPHILS # 10.7 10^3/uL (1.5-8.5); PLATELET COUNT, AUTOMATED 301 10^3/uL (150-450); RED BLOOD COUNT 3.43 10^6/uL (4.00-5.40); WHITE BLOOD COUNT 14.1 10^3/uL (4.0-10.0)
[2020-10-21 13:16] LABS: HEMATOCRIT 32.1 % (36.0-47.0)
[2020-10-21 13:40] LABS: ALBUMIN 2.3 GM/DL (3.2-5.2); ALT/SGPT 12 U/L (12-78); BILIRUBIN,TOTAL < 0.1 MG/DL (0.2-1.0); BLOOD UREA NITROGEN 10 MG/DL (7-18); CALCIUM LEVEL 8.8 MG/DL (8.5-10.1); CARBON DIOXIDE LEVEL 25 MEQ/L (21-32); CHLORIDE LEVEL 109 MEQ/L (98-107); FERRITIN 12 NG/ML (8-252); GLOMERULAR FILTRATION RATE > 60.0 (>60); GLUCOSE, FASTING 63 MG/DL (70-100); IRON (FE) 368 UG/DL (50-170); MAGNESIUM LEVEL 1.8 MG/DL (1.8-2.4); PERCENT SATURATION 74.3 % (13.2-45.0); PHOSPHORUS LEVEL 2.6 MG/DL (2.5-4.9); SODIUM LEVEL 142 MEQ/L (136-145); TOTAL IRON BINDING CAPACITY 495 UG/DL (250-450); TOTAL PROTEIN 5.4 GM/DL (6.4-8.2)
[2020-10-21 13:44] LABS: TOTAL 25(OH) VITAMIN D 20.6 NG/ML (30.0-100.0); VITAMIN B12 LEVEL 335 PG/ML (247-911)
[2020-10-21 13:55] LABS: HEMOGLOBIN A1c 5.9 %
== END ==
LOC: M WUC 11:14
PROVIDERS: ATTEND Physician Assistant
DX: K91.2 Postsurgical malabsorption, not elsewhere classified (principal); Z98.84 Bariatric surgery status; E55.9 Vitamin D deficiency, unspecified; Z86.39 Personal history of other endocrine, nutritional and metabolic disease

== ENCOUNTER → 2020-10-24 | Outpatient (REF) | payer OTHER | LOC: M PLALAB 15:59 | PROVIDERS: ATTEND Obstetrics & Gynecology | DX: Z36.89 Encounter for other specified antenatal screening (principal); Z3A.35 35 weeks gestation of pregnancy; Z53.8 Procedure and treatment not carried out for other reasons ==

== ENCOUNTER → 2020-10-24 | Outpatient (REF) | payer OTHER | LOC: M SFHCWAGY 10:44 | PROVIDERS: ATTEND Family Medicine | DX: Z36.89 Encounter for other specified antenatal screening (principal); Z3A.35 35 weeks gestation of pregnancy ==

== ENCOUNTER → 2020-10-24 | Outpatient (CLI) | payer OTHER ==
--- NOTE | 2020-10-24 16:02 | REP ---
INDICATION: BPP/BARIATRIC SURGERY. COMPARISON: 10/17/2020. TECHNIQUE: Real-time sonographic evaluation of the gravid uterus performed. FINDINGS: Estimated gestational age is35 weeks 1 day, EDC 11/27/2020. Presentation: Cephalic Placenta posterior, grade 3, without evidence of placenta previa. heart rate is recorded at 140 beats per minute. Amniotic fluid is subjectively normal. RONEL 13.9, normal range 7.9-24.9. Biophysical profile score 8/8. SD ratio umbilical artery 3.09, normal range 1.67-3.58. RI 0.68, normal range 0.46-0.72. Closed cervical length is measured at 3.5 cm. IMPRESSION: Viable single intrauterine gestation as above. <Electronically signed by David Guadarrama > 10/24/20 [id number]
== END ==
LOC: M WHC 13:51
PROVIDERS: ATTEND Obstetrics & Gynecology
DX: O99.843 Bariatric surgery status complicating pregnancy, third trimester (principal); Z3A.35 35 weeks gestation of pregnancy

== ENCOUNTER → 2020-10-31 | Outpatient (CLI) | payer OTHER ==
--- NOTE | 2020-11-01 07:32 | REP ---
INDICATION: GROWTH/BPP/BARIATRIC SURGERY COMPARISON: 10/24/2020 TECHNIQUE: Transabdominal obstetrical ultrasound with color Doppler evaluation. FINDINGS: Examination demonstrates a single live intrauterine in cephalic presentation. motion is identified by technologist. Placenta is noted posterior and grade 2 without evidence for placenta previa or abruption. Amniotic fluid volume is normal. Cervix appears closed.. Gestational age by 1st ultrasound 35 weeks 1 day with CIRILO 12/04/2020 Gestational age by LMP 36 weeks 1 day with CIRILO 11/27/2020. Gestational age by current measurements 37 weeks 3 days with CIRILO 11/18/2020. FHR equals 147 beats per minute. Estimated weight 3213 grams (84thpercentile). RONEL: 17.9 cm Biophysical profile score: 8/8 Umbilical artery SD ratio: 2.90 (1.63-3.50) IMPRESSION: Single live advanced gestation in cephalic presentation demonstrating appropriate estimated weight and growth. Amniotic fluid index and biophysical profile score normal. <Electronically signed by Andrey Hinds > 11/01/20 0728
== END ==
LOC: M WHC 13:16
PROVIDERS: ATTEND Obstetrics & Gynecology
DX: O99.843 Bariatric surgery status complicating pregnancy, third trimester (principal); Z3A.36 36 weeks gestation of pregnancy

== ENCOUNTER → 2020-11-07 | Outpatient (CLI) | payer OTHER ==
--- NOTE | 2020-11-07 15:23 | REP ---
INDICATION: BARIATRIC SURGERY,BPP COMPARISON: 10/31/2020 TECHNIQUE: Transabdominal obstetrical ultrasound with color Doppler evaluation. FINDINGS: Examination demonstrates a single live intrauterine in cephalic presentation. motion is identified by technologist. Placenta is noted posterior and grade 3 without evidence for placenta previa or abruption. Amniotic fluid volume is normal. Cervix appears closed.. Gestational age by LMP 37 weeks 1 day with CIRILO 11/27/2020. Gestational age by current measurements 36 weeks 1 day with CIRILO 12/04/2020. FHR equals 149 beats per minute. RONEL: 16.6 cm (7.5-24.3) Biophysical profile score: 8/8 Umbilical artery SD ratio: 2.61 (1.58-3.42) IMPRESSION: Single live advanced gestation in cephalic presentation. Normal amniotic fluid index and biophysical profile score. <Electronically signed by Andrey Hinds > 11/07/20 [id number]
== END ==
LOC: M WHC 13:24
PROVIDERS: ATTEND Obstetrics & Gynecology
DX: O99.843 Bariatric surgery status complicating pregnancy, third trimester (principal); Z3A.36 36 weeks gestation of pregnancy

== ENCOUNTER 2020-11-14 16:39 | Inpatient (IN) | payer OTHER ==
[~2020-11-14] VITALS: Ht 175.3 cm; Wt 112.4 kg
[2020-11-14] VITALS (8 sets, daily range): BP systolic 134–162; BP diastolic 75–90
[2020-11-14] MEDS ORDERED: LIDOCAINE 1% MDV 20ML VIAL INFIL PRN (17:10)
[2020-11-14] MEDS: miSOPROStol 50MCG 1/2 TABLET SL SCH ×2 (17:53→22:13)
[2020-11-14 18:05] LABS: HEMATOCRIT 36.9 % (36.0-47.0); HEMOGLOBIN 12.2 g/dl (12.0-15.5); MEAN CORPUSCULAR HEMOGLOBIN 30.3 pg (27.0-33.0); MEAN CORPUSCULAR HGB CONC 33.1 g/dl (32.0-36.5); MEAN CORPUSCULAR VOLUME 91.8 fl (80.0-96.0); PLATELET COUNT, AUTOMATED 288 10^3/uL (150-450); RED BLOOD COUNT 4.02 10^6/uL (4.00-5.40); WHITE BLOOD COUNT 13.7 10^3/uL (4.0-10.0)
[2020-11-14 18:33] LABS: ALT/SGPT 12 U/L (12-78); BILIRUBIN,TOTAL 0.1 MG/DL (0.2-1.0); CREATININE FOR GFR 0.37 MG/DL (0.55-1.30); GLOMERULAR FILTRATION RATE > 60.0 (>60); LDH LACTATE DEHYDROGENASE 130 U/L (84-246); URIC ACID 3.8 MG/DL (2.6-6.0)
[2020-11-14] MEDS: ACETAMINOPHEN 500 MG TAB PO PRN (20:23)
[2020-11-15] VITALS (45 sets, daily range): BP systolic 126–182; BP diastolic 65–91
[2020-11-15] MEDS: miSOPROStol 50MCG 1/2 TABLET SL SCH ×2 (01:00→05:00)
--- NOTE | 2020-11-15 07:54 | IPNPDOC ---
Obstetrical Progress Note Date of Service Nov 15, 2020 Subjective comfortable with epidural Objective Vital Signs Date Time Temp Pulse Resp B/P (MAP) Pulse Ox O2 Delivery O2 Flow Rate FiO2 11/15/20 06:24 98.8 60 18 150/77 (101) 11/14/20 17:07 Room Air Assessment Variability: Moderate Accelerations: Positive Decelerations: None Heart Rate Tracing: Category I Tocometer Contractions: Yes Frequency: regular, every 1-5 min. Duration: greater than 60 seconds Strength: palpated as moderate Sterile Vaginal Examination Dilation: 2cm Effacement (%): 80% Station: -2 Cervical Consistency: Medium Cervical Position: Anterior Postion/Presentation: Cephalic presentation Assessment and Plan Status: Reassuring Additional Comments 30 yo G1 at 38 1/7 weeks, induction for gestational hypertension Pt received 2 doses of Misoprostol Plan to start Pitocin Plan AROM with placement of FSE when able KHANH KILLIAN MD Nov 15, 2020 07:54
[2020-11-15] MEDS ORDERED: OXYTOCIN DRIP 30 UNITS in IV 1 EA IV SCH (08:10)
[2020-11-15] MEDS: LR 1,000 ML IV SCH ×4 (09:21→23:39)
--- NOTE | 2020-11-15 16:08 | IPNPDOC ---
Text Note Date of Service The patient was seen on 11/15/20. NOTE The patient was seen on 11/15/20. NOTE Progress Pitocin started after breakfast. Cat I tracing, difficult to trace due to habitus SVE 2/80/-2, midline Cooks catheter placed, inflated with 60/40ml NS Pt plans epidural for labor coping. Ruchi Tilley CNM Nov 15, 2020 09:48 DD: Ruchi Tilley CNM, 11/15/20947 DT: NDV 11/15/20947 DS: ANETA@[facility] 11/15/20947 <Electronically signed by Ruchi Tilley CNM> 11/15/20947 VS,Jonathan, I+O VS, Jonathan, I+O Laboratory Tests 11/14/20 17:46 Vital Signs Date Time Temp Pulse Resp B/P (MAP) Pulse Ox O2 Delivery O2 Flow Rate FiO2 11/15/20 15:05 75 20 144/80 (101) 11/15/20 12:08 98.5 11/14/20 17:07 Room Air I&O- Last 24 Hours up to 6 AM 11/15/20 06:00 Output Total 450 ml Balance -450 ml Ruchi Tilley CNM Nov 15, 2020 16:08
--- NOTE | 2020-11-15 16:11 | IPNPDOC ---
Text Note Date of Service The patient was seen on 11/15/20. NOTE Progress Becoming uncomfortable UC 2-3 minutes x 45-60 seconds FH 135, Cat I Pitocin @ 14mu SVE - bulb sitting in vagina. -/-[address] epidural then consider AROM VS,Fishbone, I+O VS, Fishbone, I+O Laboratory Tests 11/14/20 17:46 Vital Signs Date Time Temp Pulse Resp B/P (MAP) Pulse Ox O2 Delivery O2 Flow Rate FiO2 11/15/20 15:05 75 20 144/80 (101) 11/15/20 12:08 98.5 11/14/20 17:07 Room Air I&O- Last 24 Hours up to 6 AM 11/15/20 06:00 Output Total 450 ml Balance -450 ml Ruchi Tilley CNM Nov 15, 2020 16:10
[2020-11-15] MEDS ORDERED: FENTANYL 2MCG/ML ROPIVACAINE 0.2% IN 0.9% NACL 100ML IVBAG As Ordered ONE ×2 (16:38→23:40)
[2020-11-15] MEDS ORDERED: diphenhydrAMINE 50MG/ML VIAL (J1200) IV PRN (17:25)
[2020-11-15] MEDS ORDERED: LACTATED RINGER'S 1000 ML IV PRN (17:25)
[2020-11-15] MEDS ORDERED: NALOXONE INJ 0.4MG/1ML VIAL (J2310 PER 1MG) IV PRN (17:25)
[2020-11-15] MEDS ORDERED: EPIDURAL/PCA KEYS XX PRN (17:25)
[2020-11-15] MEDS ORDERED: EPIDURAL COMMENT XX SCH (17:25)
[2020-11-15] MEDS ORDERED: ONDANSETRON 4MG/2ML VIAL IV PRN (17:25)
[2020-11-15] MEDS ORDERED: REFRIGERATOR IV KEYS XX PRN (17:25)
[2020-11-15] MEDS ORDERED: ePHEDrine SULFATE 25 MG/5 ML(5MG/ML) SYRINGE IV PRN (17:25)
[2020-11-15] MEDS: FENTANYL/ROPIVACAINE/NACL BAG 100 ML EPIDURAL SCH ×2 (17:28→23:44)
--- NOTE | 2020-11-15 22:18 | IPNPDOC ---
Text Note Date of Service The patient was seen on 11/15/20. NOTE Progress Comfortable with epidural UC 2-3 minutes x 60 seconds FH 135, Cat I SVE 5/80/-1 AROM copious clear fluid FSE/IUPC placed FH decels following AROM. Position changes and observe. VS,Fishbone, I+O VS, Fishbone, I+O Vital Signs Date Time Temp Pulse Resp B/P (MAP) Pulse Ox O2 Delivery O2 Flow Rate FiO2 11/15/20 21:34 75 18 136/65 (88) 11/15/20 21:06 98.0 11/14/20 17:07 Room Air I&O- Last 24 Hours up to 6 AM0 11/15/20 06:00 Output Total 450 ml Balance -450 ml Ruchi Tilley CNM Nov 15, 2020 22:18
[2020-11-16] VITALS (15 sets, daily range): BP systolic 133–192; BP diastolic 64–110
[2020-11-16] MEDS ORDERED: LIDOCAINE 1% MDV 50ML VIAL As Ordered ONE (03:01)
[2020-11-16 03:18] LABS: CORD GAS HCO3 V 19.5 MEQ/L; CORD GAS O2 SAT V 38.9 %; CORD GAS PCO2 V 42.9 mmHg; CORD GAS PH V 7.276 UNITS; CORD GAS PO2 V 18.2 mmHg; CORD GAS SBC V 17.4 MEQ/L; CORD GAS TCO2 V 20.8 MEQ/L
[2020-11-16] MEDS: LR 1,000 ML IV SCH (03:21)
[2020-11-16] MEDS ORDERED: MEASLES,MUMPS,RUBELLA VACCINE INJ (MMR-II) (90707) SC SCH (03:50)
[2020-11-16] MEDS ORDERED: LIDOCAINE 1% MDV 50ML VIAL SC ONE (03:50)
[2020-11-16] MEDS ORDERED: MOM 30ML SUSPENSION UDC PO PRN (03:50)
[2020-11-16] MEDS ORDERED: ANUSOL HC CREAM 30GM TOP PRN (03:50)
[2020-11-16] MEDS ORDERED: DOCUSATE SODIUM 100MG CAPSULE PO PRN (03:50)
[2020-11-16] MEDS ORDERED: RHOGAM 300 MCG (1500 IU) INJ (J2790) IM SCH (03:50)
[2020-11-16] MEDS ORDERED: OXYTOCIN DRIP 30 UNITS in IV 1 EA IV SCH (03:50)
[2020-11-16] MEDS ORDERED: METHYLERGONOVINE MALEATE 0.2 MG TAB PO PRN (03:50)
[2020-11-16] MEDS ORDERED: DIBUCAINE 1% OINTMENT 30GM TOP PRN (03:50)
[2020-11-16] MEDS ORDERED: ACETAMINOPHEN TAB 650MG DOSE (2X325MG) PO PRN (03:50)
--- NOTE | 2020-11-16 04:03 | DNPDOC ---
[facility] Delivery Note Delivery Note DATE OF DELIVERY: 11/16/2020 PREDELIVERY DIAGNOSIS: 38+3/7 weeks' gestation and labor. POST DELIVERY DIAGNOSIS: Delivered. PROCEDURE: Spontaneous vaginal delivery. PROVIDER: Ruchi Tilley CNM assisted by Dr Kline ANESTHESIA: Epidural. ESTIMATED BLOOD LOSS: 300 mL. FINDINGS: 6 pound 15 ounce, 3140gm male infant, Score 5/9, no nuchal cord, compound right anterior arm. DELIVERY SUMMARY: Patient is a 30 year-old 1 now para 1-0-0-1 who was admitted to labor and delivery for induction of labor due to GHTN, Lupus. She received misoprostol x 2 followed by pitocin. An epidural was utilized for labor coping. AROM large amount clear fluid 2208. Fully dilated 0240 with spontaneous bearing down efforts. Prolonged deceleration 90's-100's. Dr Kline was requested to assist with expediting delivery. Small 1st degree episiotomy was cut by Dr Kline. Viable male child delivered with ease @ 0253, MARY, compound with right anterior arm. Slow to transition. Cord doubly clamped and cut, infant to warmer for stimulation and evaluation. Apgars 5/9. Cord gas obtained, venous 7.276 with BE -7. Unable to obtain arterial. Placenta noriega, intact with 3v cord @ 0259. Fundus firmed with massage, IV bolus of premixed pitocin solution and misoprostol 1000mcg NM. EBL 300ml. 1st degree episiotomy without extension infiltrated with lidocaine and repaired with 3-0 vicryl rapide in the usual fashion. Sponge, sharp and instrument count correct. Mother is naming her son Chapin. Ruchi Tilley CNM November 16, 2020 04:00
[2020-11-16] MEDS: LEVOTHYROXINE 25MCG TABLET (0.025MG) PO SCH (06:40)
[2020-11-16] MEDS: FLUoxetine 20 MG CAP PO SCH (08:56)
[2020-11-16] MEDS: FERROUS SULFATE 325MG TAB PO SCH (08:56)
[2020-11-16] MEDS: PRENATAL VITAMINS CHEWABLE TABLET PO SCH (08:56)
[2020-11-17 05:57] VITALS: BP 133/65
[2020-11-17] MEDS: LEVOTHYROXINE 25MCG TABLET (0.025MG) PO SCH (06:29)
--- NOTE | 2020-11-17 08:08 | IPNPDOC ---
Progress Note Date of Service: November 17, 2020 Day#: 1 Progress Note SUBJECT: Status post . She has been ambulating, voiding spontaneously without issue and tolerating regular diet. Lochia decreasing/minimal. Pain is well-controlled. Denies headache, visual changes, right upper quadrant pain, shortness breath or chest pain. OBJECTIVE: VITAL SIGNS: Within normal limits, afebrile. Alert and oriented times three. Abdomen: Fundus firm at U-2. Soft, NTTP. ASSESSMENT: Status post uncomplicated spontaneous vaginal delivery. Vitals within normal limits, afebrile, hemodynamically stable with no evidence of infection. PLAN: Discharge to home tomorrow Tylenol and Motrin for pain. Routine instructions/precautions reviewed. Routine PP visit in 6 weeks in clinic. VS, I&O, 24H, Fishbone Vital Signs/I&O Vital Signs Date Time Temp Pulse Resp B/P (MAP) Pulse Ox O2 Delivery O2 Flow Rate FiO2 11/17/20 05:57 97.8 82 18 133/65 (87) 11/14/20 17:07 Room Air I&O- Last 24 Hours up to 6 AM 11/17/20 06:00 Intake Total 4882 ml Balance 4882 ml REJI HAYWARD DO November 17, 2020 08:08
[2020-11-17] MEDS: FLUoxetine 20 MG CAP PO SCH (10:10)
[2020-11-17] MEDS: FERROUS SULFATE 325MG TAB PO SCH (10:10)
[2020-11-17] MEDS: PRENATAL VITAMINS CHEWABLE TABLET PO SCH (10:10)
[2020-11-17] MEDS: ACETAMINOPHEN 500 MG TAB PO PRN (16:38)
[2020-11-17 18:00] VITALS: BP 143/68
[2020-11-18] MEDS: ACETAMINOPHEN 500 MG TAB PO PRN ×2 (03:10→10:24)
[2020-11-18] MEDS: LEVOTHYROXINE 25MCG TABLET (0.025MG) PO SCH (05:37)
[2020-11-18 06:00] VITALS: BP 137/67
[2020-11-18] MEDS: PRENATAL VITAMINS CHEWABLE TABLET PO SCH (10:23)
[2020-11-18] MEDS: FERROUS SULFATE 325MG TAB PO SCH (10:24)
[2020-11-18] MEDS: FLUoxetine 20 MG CAP PO SCH (10:24)
== END 2020-11-18 11:35 | disposition home or self-care (01) | DRG 560 ==
LOC: M LDO 16:39 → M LDI 16:43 → M OBS 11-16 05:32
PROVIDERS: ADMIT Specialist; ATTEND Advanced Practice Midwife
PROC: 3E0P7GC Introduction of Other Therapeutic Substance into Female Reproductive, Via Natural or Artificial Opening (ICD-10-PCS; 2020-11-14)
PROC: 10907ZC Drainage of Amniotic Fluid, Therapeutic from Products of Conception, Via Natural or Artificial Opening (ICD-10-PCS; 2020-11-15)
PROC: 10E0XZZ Delivery of Products of Conception, External Approach (ICD-10-PCS; principal; 2020-11-16)
PROC: 0HQ9XZZ Repair Perineum Skin, External Approach (ICD-10-PCS; 2020-11-16)
DX: O13.4 Gestational [pregnancy-induced] hypertension without significant proteinuria, complicating childbirth (principal); M32.9 Systemic lupus erythematosus, unspecified; Z3A.38 38 weeks gestation of pregnancy; O32.6XX0 Maternal care for compound presentation, not applicable or unspecified; O70.0 First degree perineal laceration during delivery; Z37.0 Single live birth; O99.844 Bariatric surgery status complicating childbirth; O76 Abnormality in fetal heart rate and rhythm complicating labor and delivery; O26.893 Other specified pregnancy related conditions, third trimester

== ENCOUNTER → 2020-12-10 | Outpatient (CLI) | payer OTHER ==
--- NOTE | 2020-12-10 12:06 | REP ---
INDICATION: LT ANKLE/FOOT PAIN. COMPARISON: None. TECHNIQUE: Axial noncontrast images through the ankle with coronal and sagittal reformations. FINDINGS: Very small bony slivers along the lateral aspect of the talus just anterior and below the level of the fibular head are identified along with soft tissue swelling and stranding raising the possibility of small avulsion fracture fragments. Correlation with history of trauma is recommended. Remainder of the examination is relatively age-appropriate. Subtle nonspecific areas of lucency within the medullary cavity of the distal tibial metadiaphysis are nonspecific. IMPRESSION: 1. Possible small avulsion fracture fragments along the lateral aspect of the talus with overlying soft tissue swelling and stranding. Findings should be correlated with recent trauma. No further fracture or dislocation identified. 2. Somewhat mottled lucent areas within the visualized tibial metadiaphysis are nonspecific. Consider correlation with x-ray evaluation and physical examination. <Electronically signed by Andrey Hinds > 12/10/20 [id number]
--- NOTE | 2020-12-10 12:12 | REP ---
INDICATION: LT ANKLE/FOOT PAIN. COMPARISON: None. TECHNIQUE: Axial noncontrast images through the foot with coronal and sagittal reformations. FINDINGS: Small bony slivers are identified along the lateral aspect of the talus just anterior and inferior to the fibular head along with associated surrounding edema and fat stranding suggesting small avulsion fracture fragments related to recent trauma/injury. Clinical correlation is required. Remainder of the examination is essentially age-appropriate and without further acute trauma/injury or obvious pathology IMPRESSION: Possible small avulsion fracture fragments identified along the lateral aspect of the talus with overlying soft tissue swelling. Correlation is required. <Electronically signed by Andrey Hinds > 12/10/20 [id number]
== END ==
LOC: M RAD 11:40
PROVIDERS: ATTEND Physician Assistant Surgical
DX: M25.572 Pain in left ankle and joints of left foot (principal)

== ENCOUNTER → 2021-12-24 | Outpatient (REF) | payer OTHER ==
[~2021-12-24] MED LIST changes: +FLUO-96 PO; -FLUO20CA20 PO; -OMEP-221 PO; +OMEP40CA5 PO
== END ==
LOC: M LAB REF 16:31
PROVIDERS: ATTEND Nurse Practitioner Adult Health
DX: R53.83 Other fatigue (principal)

== ENCOUNTER → 2022-04-24 | Outpatient (REF) | payer OTHER | LOC: M LAB REF 16:12 | PROVIDERS: ATTEND Physician Assistant Medical | DX: R30.0 Dysuria (principal); R31.9 Hematuria, unspecified ==

== ENCOUNTER → 2022-05-19 | Outpatient (REF) | payer OTHER | LOC: M LAB REF 14:06 | PROVIDERS: ATTEND Internal Medicine | DX: R30.0 Dysuria (principal) ==

== ENCOUNTER → 2022-07-02 | Outpatient (REF) | payer OTHER ==
[2022-07-02 14:48] LABS: VITAMIN B12 LEVEL 421 PG/ML (211-911)
[2022-07-02 14:49] LABS: IRON (FE) 120 UG/DL (50-170)
== END ==
LOC: M LAB REF 12:43
PROVIDERS: ATTEND Nurse Practitioner Adult Health
DX: Z98.84 Bariatric surgery status (principal)

== ENCOUNTER → 2022-07-22 | Outpatient (REF) | payer OTHER | LOC: M PLALAB 10:44 | PROVIDERS: ATTEND Advanced Practice Midwife | DX: R87.610 Atypical squamous cells of undetermined significance on cytologic smear of cervix (ASC-US) (principal); Z12.4 Encounter for screening for malignant neoplasm of cervix ==

== ENCOUNTER → 2022-08-10 | Outpatient (REF) | payer OTHER | LOC: M SFHCRHEU 11:09 | PROVIDERS: ATTEND Internal Medicine | DX: M06.4 Inflammatory polyarthropathy (principal); Z53.9 Procedure and treatment not carried out, unspecified reason ==

== ENCOUNTER → 2022-08-13 | Outpatient (REF) | payer OTHER ==
[2022-08-13 12:37] LABS: APPEARANCE, URINE MANUAL CLEAR (CLEAR); COLOR, URINE MANUAL YELLOW (YELLOW)
[2022-08-13 12:39] LABS: BILIRUBIN, URINE MANUAL NEGATIVE (NEGATIVE); BLOOD URINE MANUAL NEGATIVE (NEGATIVE); GLUCOSE, URINE (UA) MANUAL NEGATIVE (NEGATIVE); KETONE, URINE MANUAL NEGATIVE (NEGATIVE); LEUKOCYTE ESTERASE, URINE MAN TRACE (NEGATIVE); NITRITE, URINE MANUAL NEGATIVE (NEGATIVE); PROTEIN, URINE MANUAL NEGATIVE (NEGATIVE); UROBILINOGEN, URINE MANUAL NORMAL (NORMAL)
[2022-08-13 12:58] LABS: BACTERIA, URINE SMALL AMOUNT; RBC, URINE 0-1 /hpf (0-3); SQUAMOUS EPITHELIAL CELL URINE MOD AMOUNT /hpf (SMALL AMT)
[2022-08-13 12:59] LABS: HYALINE CAST, URINE NONE SEEN /lpf (0-1); MUCUS, URINE SMALL AMOUNT (NEGATIVE)
[2022-08-13 13:07] LABS: TOTAL PROTEIN,RANDOM URINE 13.5 MG/DL (0.0-14.0)
[2022-08-13 13:11] LABS: CREATININE,RANDOM URINE 146.2 MG/DL
[2022-08-13 13:12] LABS: COMPLEMENT C3 131.9 MG/DL (84.0-160.0)
[2022-08-13 13:14] LABS: C REACTIVE PROTEIN QUANTITATIV < 0.40 MG/DL (<1.0); COMPLEMENT C4 37.6 MG/DL (12-36)
[2022-08-14 10:28] LABS: DRVV SCREEN 39.5 SEC
[2022-08-14 11:00] LABS: PTT LUPUS TYPE ANTICOAG SCREEN 1.1 (0-1.2)
== END ==
LOC: M SFHCRHEU 09:20
PROVIDERS: ATTEND Internal Medicine
DX: M06.4 Inflammatory polyarthropathy (principal)

== ENCOUNTER 2022-08-16 11:23 | Emergency (ER) | payer OTHER ==
[~2022-08-16] VITALS: Ht 175.3 cm; Wt 109.3 kg
[2022-08-16 11:24] VITALS: BP 129/71
== END 2022-08-16 11:34 | disposition left against medical advice (07) ==
LOC: M ED 11:23
DX: Z53.21 Procedure and treatment not carried out due to patient leaving prior to being seen by health care provider (principal)

== ENCOUNTER → 2022-08-28 | Outpatient (CLI) | payer OTHER | LOC: M WUC 09:40 | PROVIDERS: ATTEND Nurse Practitioner Adult Health | DX: M51.36 Other intervertebral disc degeneration, lumbar region (principal); M51.37 Other intervertebral disc degeneration, lumbosacral region ==

== ENCOUNTER 2022-09-29 14:18 | Emergency (ER) | payer OTHER ==
[~2022-09-29] VITALS: Ht 175.3 cm; Wt 109.1 kg
[2022-09-29] MEDS ORDERED: KLON0.5T PO (14:32)
[2022-09-29] MEDS ORDERED: BUPR1TAB52 (14:32)
[2022-09-29] MEDS ORDERED: HYDR200T3 (14:32)
[2022-09-29] MEDS ORDERED: DEPO150I12 IM (14:32)
[2022-09-29] MEDS ORDERED: MULT-90 PO (14:32)
[2022-09-29 17:05] LABS: BASO # 0.1 10^3/uL (0.0-0.2); BASO % 0.8 % (0.0-1.0); EOS # 0.1 10^3/uL (0.0-0.5); EOS % 1.4 % (0.0-3.0); HEMATOCRIT 36.1 % (36.0-47.0); HEMOGLOBIN 11.6 g/dl (12.0-15.5); LYMPH % 34.5 % (24.0-44.0); MEAN CORPUSCULAR HEMOGLOBIN 28.5 pg (27.0-33.0); MEAN CORPUSCULAR HGB CONC 32.1 g/dl (32.0-36.5); MEAN CORPUSCULAR VOLUME 88.7 fl (80.0-96.0); MONO # 0.6 10^3/uL (0.0-0.8); MONO % 9.5 % (2.0-8.0); NEUTROPHILS # 3.2 10^3/uL (1.5-8.5); NEUTROPHILS % 53.5 % (36.0-66.0); PLATELET COUNT, AUTOMATED 287 10^3/uL (150-450); RED BLOOD COUNT 4.07 10^6/uL (4.00-5.40); WHITE BLOOD COUNT 5.9 10^3/uL (4.0-10.0)
[2022-09-29 17:07] LABS: LIPASE 26 U/L (12-53)
[2022-09-29 17:08] LABS: CK-MB VALUE MASS < 1.0 NG/ML (<3.6)
[2022-09-29 17:09] LABS: ALBUMIN 3.8 G/DL (3.2-5.2); ALKALINE PHOSPHATASE 70 U/L (46-116); ALT/SGPT 18 U/L (7.0-40); AST/SGOT 18 U/L (<34); BILIRUBIN,DIRECT 0.1 MG/DL (<0.4); BILIRUBIN,TOTAL 0.4 MG/DL (0.3-1.2); BLOOD UREA NITROGEN 15 MG/DL (9-23); CALCIUM LEVEL 9.2 MG/DL (8.5-10.1); CARBON DIOXIDE LEVEL 24 MMOL/L (20-31); CHLORIDE LEVEL 111 MMOL/L (98-107); CREATININE FOR GFR 0.58 MG/DL (0.55-1.30); GLOMERULAR FILTRATION RATE > 60.0 (>60); GLUCOSE, FASTING 75 MG/DL (60-100); POTASSIUM SERUM 4.3 MMOL/L (3.5-5.1); SODIUM LEVEL 143 MMOL/L (136-145); TOTAL PROTEIN 6.6 G/DL (5.7-8.2)
[2022-09-29 17:10] LABS: CPK CREATINE PHOSPHOKINASE 66 U/L (34-145); MB/CK RELATIVE INDEX 1.51 (< OR =4)
[2022-09-29 17:20] LABS: HCG, SERUM QUALITATIVE NEGATIVE (NEGATIVE)
[2022-09-29] MEDS ORDERED: ISOVUE-370 76% 100ML VIAL As Ordered ONE (18:36)
[2022-09-29] MEDS ORDERED: KETOROLAC 30 MG/ML 1ML VIAL IV ONE (19:25)
[2022-09-29 20:52] VITALS: BP 121/63
== END 2022-09-29 20:54 | disposition home or self-care (01) ==
LOC: M ED 14:18
DX: R07.89 Other chest pain (principal); F17.210 Nicotine dependence, cigarettes, uncomplicated; Z88.2 Allergy status to sulfonamides; Z88.1 Allergy status to other antibiotic agents; Z88.5 Allergy status to narcotic agent; Z91.040 Latex allergy status; Z79.890 Hormone replacement therapy; Z79.899 Other long term (current) drug therapy
CPT/HCPCS: 36415; 71045; 71275; 80048; 80076; 82550; 82553; 83690; 84703; 85025; 85379; 93005; 96374; 99284; J1885

== ENCOUNTER → 2022-10-05 | Outpatient (REF) | payer OTHER ==
[~2022-10-05] MED LIST changes: +BUPR1TAB52; +DEPO150I12 IM; +HYDR200T3; +KLON0.5T PO; +MULT-90 PO
== END ==
LOC: M LAB REF 13:10
PROVIDERS: ATTEND Physician Assistant Medical
DX: R53.1 Weakness (principal)

== ENCOUNTER 2022-11-18 15:23 | Emergency (ER) | payer OTHER ==
[~2022-11-18] VITALS: Ht 175.3 cm; Wt 99.8 kg
[2022-11-18 16:16] LABS: BASO % 0.6 % (0.0-1.0); EOS # 0.1 10^3/uL (0.0-0.5); EOS % 1.6 % (0.0-3.0); HEMOGLOBIN 11.3 g/dl (12.0-15.5); LYMPH # 1.9 10^3/uL (1.5-5.0); LYMPH % 37.8 % (24.0-44.0); MEAN CORPUSCULAR HEMOGLOBIN 28.9 pg (27.0-33.0); MEAN CORPUSCULAR HGB CONC 32.3 g/dl (32.0-36.5); MEAN CORPUSCULAR VOLUME 89.5 fl (80.0-96.0); MONO # 0.4 10^3/uL (0.0-0.8); MONO % 7.7 % (2.0-8.0); NEUTROPHILS # 2.6 10^3/uL (1.5-8.5); NEUTROPHILS % 52.1 % (36.0-66.0); PLATELET COUNT, AUTOMATED 255 10^3/uL (150-450); RED BLOOD COUNT 3.91 10^6/uL (4.00-5.40); WHITE BLOOD COUNT 4.9 10^3/uL (4.0-10.0)
[2022-11-18 16:47] LABS: LIPASE 21 U/L (12-53)
[2022-11-18 16:48] LABS: HCG, SERUM QUALITATIVE NEGATIVE (NEGATIVE)
[2022-11-18 16:49] LABS: ALBUMIN 3.6 G/DL (3.2-5.2); ALKALINE PHOSPHATASE 77 U/L (46-116); ALT/SGPT 11 U/L (7.0-40); AST/SGOT 12 U/L (<34); BILIRUBIN,DIRECT 0.2 MG/DL (<0.4); BILIRUBIN,TOTAL 0.5 MG/DL (0.3-1.2); BLOOD UREA NITROGEN 8 MG/DL (9-23); CALCIUM LEVEL 9.3 MG/DL (8.5-10.1); CARBON DIOXIDE LEVEL 22 MMOL/L (20-31); CHLORIDE LEVEL 112 MMOL/L (98-107); CREATININE FOR GFR 0.59 MG/DL (0.55-1.30); GLOMERULAR FILTRATION RATE > 60.0 (>60); GLUCOSE, FASTING 81 MG/DL (60-100); POTASSIUM SERUM 4.1 MMOL/L (3.5-5.1); SODIUM LEVEL 143 MMOL/L (136-145); TOTAL PROTEIN 6.3 G/DL (5.7-8.2)
[2022-11-18] MEDS ORDERED: PANTOPRAZOLE 40MG VIAL IV ONE (18:35)
[2022-11-18] MEDS ORDERED: ONDANSETRON 4MG 2ML VIAL IV ONE (18:35)
[2022-11-18] MEDS ORDERED: KETOROLAC 30 MG/ML 1ML VIAL IV ONE (18:35)
[2022-11-18] MEDS ORDERED: NS 1,000 ML IV ONE (18:35)
[2022-11-18] MEDS ORDERED: ISOVUE-370 76% 100ML VIAL As Ordered ONE (19:29)
[2022-11-18] MEDS ORDERED: AUGMENTIN 875 MG TAB PO ONE (21:10)
[2022-11-18] MEDS ORDERED: ONDA4TAB6 PO (21:13)
[2022-11-18] MEDS ORDERED: HYDR-3713 PO (21:13)
[2022-11-18] MEDS ORDERED: AMOX875T2 PO (21:13)
[2022-11-18 21:24] VITALS: BP 108/53
== END 2022-11-18 22:19 | disposition home or self-care (01) ==
LOC: M ED 15:23
DX: K57.32 Diverticulitis of large intestine without perforation or abscess without bleeding (principal); I10 Essential (primary) hypertension; J45.909 Unspecified asthma, uncomplicated; E03.9 Hypothyroidism, unspecified; G43.909 Migraine, unspecified, not intractable, without status migrainosus; G60.9 Hereditary and idiopathic neuropathy, unspecified; Z87.442 Personal history of urinary calculi; Z98.84 Bariatric surgery status; F17.210 Nicotine dependence, cigarettes, uncomplicated; F12.90 Cannabis use, unspecified, uncomplicated; Z88.2 Allergy status to sulfonamides; Z88.5 Allergy status to narcotic agent; Z88.1 Allergy status to other antibiotic agents; Z91.040 Latex allergy status; Z79.899 Other long term (current) drug therapy
CPT/HCPCS: 36415; 74177; 80048; 80076; 81001; 83690; 84703; 85025; 87088; 87186; 96374; 96375; 99284; C9113; J1885; J2405; Q9967

== ENCOUNTER → 2023-01-27 | Outpatient (REF) | payer OTHER ==
[~2023-01-27] MED LIST changes: +AMOX875T2 PO; +HYDR-3713 PO; -HYDR200T3; -HYDR200T3 PO; +HYDR200T46; +HYDR200T46 PO
== END ==
LOC: M SFHCWAGY 13:01
PROVIDERS: ATTEND Advanced Practice Midwife
DX: R30.0 Dysuria (principal)

== ENCOUNTER 2023-02-06 19:46 | Emergency (ER) | payer OTHER ==
[~2023-02-06] VITALS: Ht 177.8 cm; Wt 101.4 kg
[2023-02-06 19:47] VITALS: TEMP 97.9; O2SAT 99
[2023-02-06 23:45] VITALS: BP 133/73
[2023-02-06] MEDS ORDERED: IBUP-1022 PO (23:55)
== END 2023-02-07 00:09 | disposition home or self-care (01) ==
LOC: M ED 19:46
DX: S90.31XA Contusion of right foot, initial encounter (principal); S00.83XA Contusion of other part of head, initial encounter; W19.XXXA Unspecified fall, initial encounter; Y92.009 Unspecified place in unspecified non-institutional (private) residence as the place of occurrence of the external cause; Y93.89 Activity, other specified; Y99.8 Other external cause status; R55 Syncope and collapse; Z88.2 Allergy status to sulfonamides; Z88.5 Allergy status to narcotic agent; Z88.8 Allergy status to other drugs, medicaments and biological substances; Z91.040 Latex allergy status; Z79.899 Other long term (current) drug therapy

== ENCOUNTER → 2023-02-11 | Outpatient (CLI) | payer OTHER ==
[~2023-02-11] MED LIST changes: +IBUP-1022 PO
== END ==
LOC: M RAD 09:42
PROVIDERS: ATTEND Physician Assistant
DX: S92.024A Nondisplaced fracture of anterior process of right calcaneus, initial encounter for closed fracture (principal)

== ENCOUNTER → 2023-03-18 | Outpatient (CLI) | payer OTHER | LOC: M WUC 12:58 | PROVIDERS: ATTEND Internal Medicine | DX: Z79.899 Other long term (current) drug therapy (principal) ==

== ENCOUNTER → 2023-07-07 | Outpatient (REF) | payer OTHER ==
[~2023-07-07] MED LIST changes: -MISO200T56 PO; +MISO200T83 PO
[2023-07-07 14:10] LABS: FERRITIN 4.8 NG/ML (7.3-270.7)
== END ==
LOC: M LAB REF 12:28
PROVIDERS: ATTEND Nurse Practitioner Adult Health
DX: Z98.84 Bariatric surgery status (principal)

== ENCOUNTER → 2023-11-04 | Outpatient (REF) | payer OTHER ==
[~2023-11-04] MED LIST changes: -KLON0.5T PO; +KLON0.5T8 PO
[2023-11-04 17:22] LABS: INR 1.07; PARTIAL THROMBOPLASTIN TIME 26.1 SECONDS (24.8-34.2); PROTHROMBIN TIME 13.6 SECONDS (12.5-14.5)
== END ==
LOC: M LAB REF 16:09
PROVIDERS: ATTEND Nurse Practitioner Adult Health
DX: N39.0 Urinary tract infection, site not specified (principal); R23.3 Spontaneous ecchymoses

== ENCOUNTER → 2024-01-11 | Outpatient (REF) | payer OTHER ==
[~2024-01-11] MED LIST changes: +FLUO-365; -FLUO20CA22; +ONDA-282 PO; -ONDA4TAB6 PO
[2024-01-11 19:17] LABS: APPEARANCE, URINE CLEAR (CLEAR); BACTERIA, URINE AUTO 2+ (NEGATIVE); BILIRUBIN, URINE AUTO NEGATIVE (NEGATIVE); BLOOD, URINE BLOOD NEGATIVE (NEGATIVE); COLOR, URINE YELLOW (YELLOW); GLUCOSE, URINE (UA) AUTO NEGATIVE (NEGATIVE); KETONE, URINE AUTO NEGATIVE (NEGATIVE); LEUKOCYTE ESTERASE, URINE AUTO NEGATIVE (NEGATIVE); MUCUS, URINE SMALL (NEGATIVE); NITRITE, URINE AUTO NEGATIVE (NEGATIVE); PROTEIN, URINE AUTO NEGATIVE (NEGATIVE); RBC, URINE AUTO 0 /HPF (0-3); SPECIFIC GRAVITY URINE AUTO 1.006 (1.002-1.035); SQUAMOUS EPITHELIAL CELL UR AU 1 /HPF (0-6); UROBILINOGEN, URINE AUTO 0.2 mg/dL (0.0-2.0); WBC, URINE AUTO 2 /HPF (0-3)
[2024-01-11 19:45] LABS: CREATININE,RANDOM URINE 35.9 MG/DL
[2024-01-11 19:46] LABS: TOTAL PROTEIN,RANDOM URINE < 6.0 MG/DL (0.0-14.0)
== END ==
LOC: M SFHCRHEU 13:43
PROVIDERS: ATTEND Internal Medicine
DX: M06.4 Inflammatory polyarthropathy (principal); R53.83 Other fatigue

== ENCOUNTER → 2024-01-12 | Outpatient (CLI) | payer OTHER ==
[~2024-01-12] MED LIST changes: +GABA-1490; +GABA-1490 PO; -GABA600T4; -GABA600T4 PO
[2024-01-12 13:13] LABS: BASO # 0.1 10^3/uL (0.0-0.2); EOS # 0.1 10^3/uL (0.0-0.5); EOS % 1.8 % (0.0-3.0); HEMATOCRIT 34.2 % (36.0-47.0); HEMOGLOBIN 10.7 g/dl (12.0-15.5); LYMPH # 1.7 10^3/uL (1.5-5.0); LYMPH % 33.9 % (24.0-44.0); MEAN CORPUSCULAR HEMOGLOBIN 27.4 pg (27.0-33.0); MEAN CORPUSCULAR HGB CONC 31.3 g/dl (32.0-36.5); MEAN CORPUSCULAR VOLUME 87.5 fl (80.0-96.0); MONO # 0.3 10^3/uL (0.0-0.8); MONO % 6.9 % (2.0-8.0); NEUTROPHILS # 2.8 10^3/uL (1.5-8.5); NEUTROPHILS % 56.2 % (36.0-66.0); PLATELET COUNT, AUTOMATED 278 10^3/uL (150-450); RED BLOOD COUNT 3.91 10^6/uL (4.00-5.40); WHITE BLOOD COUNT 4.9 10^3/uL (4.0-10.0)
[2024-01-12 13:23] LABS: ERYTHROCYTE SEDIMENTATION RATE 12 mm/hr (0-20)
[2024-01-12 13:38] LABS: C REACTIVE PROTEIN QUANTITATIV < 0.40 MG/DL (<1.0)
[2024-01-12 13:39] LABS: IRON (FE) 84 UG/DL (50-170); PHOSPHORUS LEVEL 3.7 MG/DL (2.5-4.9); TOTAL IRON BINDING CAPACITY 381 UG/DL (250-425)
[2024-01-12 13:43] LABS: VITAMIN B12 LEVEL 548 PG/ML (211-911)
[2024-01-12 13:45] LABS: COMPLEMENT C3 107.4 MG/DL (84.0-160.0); COMPLEMENT C4 30.1 MG/DL (12-36)
[2024-01-12 13:46] LABS: TOTAL 25(OH) VITAMIN D 38.1 NG/ML (20.0-100.0)
[2024-01-12 13:47] LABS: FOLATE 18.52 NG/ML (>5.4)
[2024-01-15 16:47] LABS: COMPLEMENT TOTAL (CH50) > 60 U/mL (31-60)
[2024-01-17 01:12] LABS: VITAMIN B1 LEVEL WHOLE BLOOD 91 nmol/L (78-185); VITAMIN B6,PYRIDOXAL PHOSPHATE 9.8 ng/mL (2.1-21.7)
[2024-01-18 15:47] LABS: VITAMIN B7 (BIOTIN) 1526.8 pg/mL (221.0-3004.0)
[2024-01-19 14:27] LABS: VITAMIN C, ASCORBIC ACID 0.5 mg/dL (0.3-2.7)
[2024-01-19 17:17] LABS: NICOTINAMIDE 42 ng/mL (see note); NICOTINIC ACID < 20 ng/mL (see note); VITAMIN B2 (RIBOFLAVIN) 31.8 nmol/L (6.2-39.0)
== END ==
LOC: M RAD 10:42
PROVIDERS: ATTEND Internal Medicine
DX: M06.4 Inflammatory polyarthropathy (principal); M70.60 Trochanteric bursitis, unspecified hip; R53.83 Other fatigue

== ENCOUNTER → 2024-01-12 | Outpatient (CLI) | payer OTHER ==
[~2024-01-12] MED LIST changes: -GABA-1490; -GABA-1490 PO; +GABA600T4; +GABA600T4 PO
== END ==
LOC: M LAB 12:34
PROVIDERS: ATTEND Internal Medicine
DX: M06.4 Inflammatory polyarthropathy (principal); M35.9 Systemic involvement of connective tissue, unspecified; R53.83 Other fatigue; D72.810 Lymphocytopenia; M70.60 Trochanteric bursitis, unspecified hip; I73.00 Raynaud's syndrome without gangrene

== ENCOUNTER → 2024-03-30 | Outpatient (REF) | payer OTHER ==
[~2024-03-30] MED LIST changes: +GABA-1490; +GABA-1490 PO; -GABA600T4; -GABA600T4 PO
== END ==
LOC: M SFHCRHEU 09:49
PROVIDERS: ATTEND Internal Medicine
DX: M54.9 Dorsalgia, unspecified (principal)

== ENCOUNTER → 2024-04-06 | Outpatient (CLI) | payer OTHER | LOC: M PLAIMG 14:16 | PROVIDERS: ATTEND Internal Medicine | DX: M46.1 Sacroiliitis, not elsewhere classified (principal) ==

== ENCOUNTER → 2024-04-17 | Outpatient (CLI) | payer OTHER ==
[~2024-04-17] MED LIST changes: +GABA-1172 PO; -GABA-282 PO
== END ==
LOC: M LAB 09:38
PROVIDERS: ATTEND Internal Medicine
DX: M54.9 Dorsalgia, unspecified (principal)

== ENCOUNTER 2024-05-24 12:40 | Emergency (ER) | payer OTHER ==
[~2024-05-24] VITALS: Ht 177.8 cm; Wt 83.4 kg
[2024-05-24] MEDS ORDERED: TOPI-21 (14:10)
[2024-05-24] MEDS ORDERED: NABU-71 (14:10)
[2024-05-24] MEDS ORDERED: FLUO-365 (14:10)
[2024-05-24] MEDS ORDERED: CLON1TAB8 (14:10)
[2024-05-24] MEDS ORDERED: FAMO40TA3 (14:10)
[2024-05-24] MEDS ORDERED: LEVO50TA5 (14:10)
[2024-05-24 14:18] LABS: BASO % 0.2 % (0.0-1.0); HEMATOCRIT 37.2 % (36.0-47.0); HEMOGLOBIN 12.5 g/dl (12.0-15.5); LYMPH # 0.8 10^3/uL (1.5-5.0); LYMPH % 8.7 % (24.0-44.0); MEAN CORPUSCULAR HEMOGLOBIN 28.7 pg (27.0-33.0); MEAN CORPUSCULAR HGB CONC 33.6 g/dl (32.0-36.5); MEAN CORPUSCULAR VOLUME 85.5 fl (80.0-96.0); MONO # 0.3 10^3/uL (0.0-0.8); MONO % 3.9 % (2.0-8.0); NEUTROPHILS # 7.5 10^3/uL (1.5-8.5); PLATELET COUNT, AUTOMATED 280 10^3/uL (150-450); RED BLOOD COUNT 4.35 10^6/uL (4.00-5.40); WHITE BLOOD COUNT 8.6 10^3/uL (4.0-10.0)
[2024-05-24 15:03] LABS: LIPASE 28 U/L (12-53)
[2024-05-24 15:05] LABS: ALBUMIN 4.1 G/DL (3.2-5.2); ALKALINE PHOSPHATASE 84 U/L (35-104); ALT/SGPT 10 U/L (7.0-40); AST/SGOT < 8 U/L (<34); BILIRUBIN,DIRECT 0.2 MG/DL (<0.4); BILIRUBIN,TOTAL 0.6 MG/DL (0.3-1.2); TOTAL PROTEIN 7.7 G/DL (5.7-8.2)
[2024-05-24 15:17] LABS: HCG, SERUM QUALITATIVE NEGATIVE (NEGATIVE)
[2024-05-24] MEDS: METOCLOPRAMIDE INJ 10MG/2ML VIAL IV ONE (15:45)
[2024-05-24] MEDS ORDERED: ISOVUE-370 76% 100ML VIAL As Ordered ONE (15:51)
[2024-05-24] MEDS: ACETAMINOPHEN *IV* 1,000 MG in IV 1 EA IV ONE (16:58)
[2024-05-24] MEDS ORDERED: HALOPERIDOL LACTATE 5MG/ML VIAL IV ONE (17:00)
[2024-05-24] MEDS: HALOPERIDOL LACTATE 5MG/ML VIAL IV ONE (17:19)
[2024-05-24 20:04] VITALS: BP 131/70; TEMP 99; O2SAT 99
== END 2024-05-24 20:00 | disposition home or self-care (01) ==
LOC: M ED 12:40
DX: F12.188 Cannabis abuse with other cannabis-induced disorder (principal); Z98.84 Bariatric surgery status; F17.290 Nicotine dependence, other tobacco product, uncomplicated; Z79.3 Long term (current) use of hormonal contraceptives; Z79.899 Other long term (current) drug therapy; Z88.6 Allergy status to analgesic agent; Z88.2 Allergy status to sulfonamides; Z91.89 Other specified personal risk factors, not elsewhere classified; Z88.1 Allergy status to other antibiotic agents; Z88.5 Allergy status to narcotic agent; Z91.040 Latex allergy status
CPT/HCPCS: 74177; 80047; 80076; 83690; 84703; 85025; 96365; 96366; 96375; 99284; J0131; J1630; J2765; Q9967

== ENCOUNTER → 2024-07-28 | Outpatient (CLI) | payer OTHER ==
[~2024-07-28] MED LIST changes: +CLON1TAB8; +FAMO40TA3; +NABU-71; +TOPI-21
== END ==
LOC: M RAD 08:44
PROVIDERS: ATTEND Nurse Practitioner Adult Health
DX: M19.90 Unspecified osteoarthritis, unspecified site (principal)

== ENCOUNTER 2024-10-01 09:56 | Emergency (ER) | payer OTHER ==
[~2024-10-01] VITALS: Ht 177.8 cm; Wt 84.1 kg
[2024-10-01 10:32] LABS: BASO % 0.1 % (0.0-1.0); HEMATOCRIT 36.3 % (36.0-47.0); HEMOGLOBIN 11.8 g/dl (12.0-15.5); LYMPH # 0.9 10^3/uL (1.5-5.0); LYMPH % 9.1 % (24.0-44.0); MEAN CORPUSCULAR HEMOGLOBIN 27.5 pg (27.0-33.0); MEAN CORPUSCULAR HGB CONC 32.5 g/dl (32.0-36.5); MEAN CORPUSCULAR VOLUME 84.6 fl (80.0-96.0); MONO # 0.5 10^3/uL (0.0-0.8); MONO % 4.8 % (2.0-8.0); NEUTROPHILS # 8.6 10^3/uL (1.5-8.5); NEUTROPHILS % 85.7 % (36.0-66.0); PLATELET COUNT, AUTOMATED 286 10^3/uL (150-450); RED BLOOD COUNT 4.29 10^6/uL (4.00-5.40); WHITE BLOOD COUNT 10.1 10^3/uL (4.0-10.0)
[2024-10-01 10:59] LABS: LIPASE 24 U/L (12-53)
[2024-10-01 11:01] LABS: BLOOD UREA NITROGEN 12 MG/DL (9-23); CALCIUM LEVEL 9.4 MG/DL (8.5-10.1); CARBON DIOXIDE LEVEL 18 MMOL/L (20-31); CHLORIDE LEVEL 108 MMOL/L (98-107); CREATININE FOR GFR 0.46 MG/DL (0.55-1.30); GLOMERULAR FILTRATION RATE > 60.0 (>60); GLUCOSE, FASTING 121 MG/DL (60-100); POTASSIUM SERUM 4.1 MMOL/L (3.5-5.1); SODIUM LEVEL 139 MMOL/L (136-145)
[2024-10-01] MEDS: ONDANSETRON 4MG 2ML VIAL IV ONE (12:07)
[2024-10-01] MEDS ORDERED: ISOVUE-370 76% 100ML VIAL As Ordered ONE (12:08)
[2024-10-01] MEDS: METOCLOPRAMIDE INJ 10MG/2ML VIAL IV ONE (12:49)
[2024-10-01] MEDS: NS (Normal Saline) 0.9% 1,000 ML IV ONE (13:55)
[2024-10-01] MEDS: HALOPERIDOL LACTATE 5MG/ML VIAL IV STA (14:24)
[2024-10-01 15:38] VITALS: BP 118/58; TEMP 99.4; O2SAT 97
== END 2024-10-01 15:43 | disposition home or self-care (01) ==
LOC: M ED 09:56
DX: R11.2 Nausea with vomiting, unspecified (principal); Z98.84 Bariatric surgery status; F17.200 Nicotine dependence, unspecified, uncomplicated; F12.10 Cannabis abuse, uncomplicated; Z88.6 Allergy status to analgesic agent; Z88.2 Allergy status to sulfonamides; Z91.89 Other specified personal risk factors, not elsewhere classified; Z88.1 Allergy status to other antibiotic agents; Z88.5 Allergy status to narcotic agent; Z91.040 Latex allergy status; Z88.8 Allergy status to other drugs, medicaments and biological substances; K57.30 Diverticulosis of large intestine without perforation or abscess without bleeding
CPT/HCPCS: 74177; 80048; 83690; 85025; 87486; 87581; 87633; 87798; 96361; 96374; 96375; 99284; J1630; J2405; J2765; Q9967

== ENCOUNTER 2024-12-03 19:22 | Emergency (ER) | payer OTHER ==
[~2024-12-03] VITALS: Ht 177.8 cm; Wt 84.1 kg
[~2024-12-03 19:22] MED LIST changes: +BUPR-670; -BUPR1TAB52
[2024-12-03 20:32] LABS: AMPHETAMINES LEVEL URINE NEGATIVE (NEGATIVE)
[2024-12-03 20:33] LABS: BARBITURATES URINE NEGATIVE (NEGATIVE); BENZODIAZEPINES URINE NEGATIVE (NEGATIVE); COCAINE METABOLITE URINE NEGATIVE (NEGATIVE); METHADONE URINE NEGATIVE (NEGATIVE); OPIATES URINE NEGATIVE (NEGATIVE); PHENCYCLIDINE URINE NEGATIVE (NEGATIVE)
[2024-12-03 20:35] LABS: CANNABINOIDS URINE POSITIVE (NEGATIVE)
[2024-12-03 20:37] LABS: ALBUMIN 4.3 G/DL (3.2-5.2); BILIRUBIN,DIRECT 0.2 MG/DL (<0.4); BILIRUBIN,TOTAL 0.7 MG/DL (0.3-1.2); TOTAL PROTEIN 7.6 G/DL (5.7-8.2)
[2024-12-03] MEDS: METOCLOPRAMIDE 10MG TAB PO ONE (20:52)
[2024-12-03 21:03] LABS: BASO % 0.3 % (0.0-1.0); HEMATOCRIT 35.8 % (36.0-47.0); HEMOGLOBIN 11.7 g/dl (12.0-15.5); LYMPH # 1.5 10^3/uL (1.5-5.0); LYMPH % 14.3 % (24.0-44.0); MEAN CORPUSCULAR HEMOGLOBIN 28.2 pg (27.0-33.0); MEAN CORPUSCULAR HGB CONC 32.7 g/dl (32.0-36.5); MEAN CORPUSCULAR VOLUME 86.3 fl (80.0-96.0); MONO % 9.2 % (2.0-8.0); NEUTROPHILS # 7.8 10^3/uL (1.5-8.5); NEUTROPHILS % 75.8 % (36.0-66.0); PLATELET COUNT, AUTOMATED 266 10^3/uL (150-450); RED BLOOD COUNT 4.15 10^6/uL (4.00-5.40); WHITE BLOOD COUNT 10.3 10^3/uL (4.0-10.0)
[2024-12-03] MEDS: HALOPERIDOL LACTATE 5MG/ML VIAL IV STA (22:22)
[2024-12-03 23:09] VITALS: BP 124/68; TEMP 98.5; O2SAT 98
[2024-12-03] MEDS: PANTOPRAZOLE 40MG VIAL IV ONE (23:09)
== END 2024-12-03 23:15 | disposition home or self-care (01) ==
LOC: M ED 19:22
DX: R11.2 Nausea with vomiting, unspecified (principal); F17.200 Nicotine dependence, unspecified, uncomplicated; F12.10 Cannabis abuse, uncomplicated; Z79.899 Other long term (current) drug therapy; Z88.6 Allergy status to analgesic agent; Z88.2 Allergy status to sulfonamides; Z91.89 Other specified personal risk factors, not elsewhere classified; Z88.1 Allergy status to other antibiotic agents; Z88.0 Allergy status to penicillin; Z88.5 Allergy status to narcotic agent; Z91.040 Latex allergy status
CPT/HCPCS: 80047; 80076; 80307; 83690; 85025; 96374; 96375; 99284; J1630; J2470

== ENCOUNTER → 2025-01-23 | Outpatient (REF) | payer OTHER ==
[2025-01-23 16:41] LABS: IRON (FE) 27.0 UG/DL (50-170); PERCENT SATURATION 6.8 % (13.2-45.0); PHOSPHORUS LEVEL 2.9 MG/DL (2.5-4.9); TOTAL 25(OH) VITAMIN D 42.2 NG/ML (20.0-100.0); VITAMIN B12 LEVEL 456.0 PG/ML (211-911)
[2025-01-26 21:12] LABS: VITAMIN A, RETINOL LEVEL 44 mcg/dL (38-98)
[2025-01-28 14:28] LABS: VITAMIN B1 LEVEL WHOLE BLOOD 113 nmol/L (78-185)
== END ==
LOC: M LAB REF 13:37
PROVIDERS: ATTEND Nurse Practitioner Adult Health
DX: Z98.84 Bariatric surgery status (principal)

== ENCOUNTER → 2025-01-30 | Outpatient (CLI) | payer OTHER ==
[2025-01-30 19:33] LABS: LUTEINIZING HORMONE 0.9 mIU/ML; PROLACTIN 7.76 NG/ML
[2025-01-30 19:34] LABS: ESTRADIOL 61.2 PG/ML; PROGESTERONE 0.24 NG/ML
[2025-01-30 20:05] LABS: ESTIMATED AVERAGE GLUCOSE 94.0 MG/DL (60-110)
== END ==
LOC: M PLALAB 16:37
PROVIDERS: ATTEND Nurse Practitioner Family
DX: R23.2 Flushing (principal)

== ENCOUNTER → 2025-02-07 | Outpatient (CLI) | payer OTHER | LOC: M RAD 10:38 | PROVIDERS: ATTEND Urology | DX: Z87.442 Personal history of urinary calculi (principal) ==

== ENCOUNTER 2025-02-26 12:01 | Emergency (ER) | payer OTHER ==
[2025-02-26 14:57] LABS: BASO # 0.1 10^3/uL (0.0-0.2); BASO % 0.6 % (0.0-1.0); EOS # 0.0 10^3/uL (0.0-0.5); EOS % 0.0 % (0.0-3.0); LYMPH # 1.0 10^3/uL (1.5-5.0); LYMPH % 10.2 % (24.0-44.0); MONO # 0.7 10^3/uL (0.0-0.8); MONO % 7.4 % (2.0-8.0); NEUTROPHILS # 8.0 10^3/uL (1.5-8.5); NEUTROPHILS % 81.5 % (36.0-66.0); PLATELET COUNT, AUTOMATED 295 10^3/uL (150-450)
[2025-02-26] MEDS: PANTOPRAZOLE 40MG VIAL IV ONE (14:57)
[2025-02-26] MEDS: NS (Normal Saline) 0.9% 1,000 ML IV ONE (14:57)
[2025-02-26 15:32] LABS: ALT/SGPT 13 U/L (7.0-40); AST/SGOT 21 U/L (<34); CALCIUM LEVEL 9.7 MG/DL (8.5-10.1); CARBON DIOXIDE LEVEL 21 MMOL/L (20-31); CHLORIDE LEVEL 107 MMOL/L (98-107); CREATININE FOR GFR 0.54 MG/DL (0.55-1.30); GLOMERULAR FILTRATION RATE > 90.0 (>60); POTASSIUM SERUM 3.6 MMOL/L (3.5-5.1); SODIUM LEVEL 140 MMOL/L (136-145)
[2025-02-26 15:46] LABS: HCG, SERUM QUALITATIVE NEGATIVE (NEGATIVE)
[2025-02-26 18:14] VITALS: TEMP 97.5
[2025-02-26 18:30] VITALS: BP 135/60; O2SAT 99
[2025-02-27] MEDS ORDERED: PROM25TA12 PO (19:13)
== END 2025-02-26 18:25 | disposition home or self-care (01) ==
LOC: M ED 12:01
DX: F12.188 Cannabis abuse with other cannabis-induced disorder (principal); R11.2 Nausea with vomiting, unspecified; Z88.2 Allergy status to sulfonamides; Z88.1 Allergy status to other antibiotic agents; Z88.5 Allergy status to narcotic agent; Z88.6 Allergy status to analgesic agent; Z91.040 Latex allergy status; D89.9 Disorder involving the immune mechanism, unspecified; F17.200 Nicotine dependence, unspecified, uncomplicated; R00.1 Bradycardia, unspecified; Z79.899 Other long term (current) drug therapy
CPT/HCPCS: 80048; 80076; 83690; 84443; 84703; 85025; 93005; 96374; 96375; 99284; J2470; J2550; J2765

== ENCOUNTER 2025-02-27 10:41 | Emergency (ER) | payer OTHER ==
[~2025-02-27] VITALS: Ht 175.3 cm; Wt 77.3 kg
[2025-02-27 12:58] VITALS: BP 128/60
[2025-02-27] MEDS: NITROGLYCERIN 0.4 MG SUBL TABLET SL PRN (12:58)
[2025-02-27 13:12] LABS: BASO # 0.1 10^3/uL (0.0-0.2); BASO % 0.7 % (0.0-1.0); EOS # 0.0 10^3/uL (0.0-0.5); EOS % 0.1 % (0.0-3.0); LYMPH # 2.1 10^3/uL (1.5-5.0); LYMPH % 27.2 % (24.0-44.0); MONO # 0.9 10^3/uL (0.0-0.8); MONO % 11.2 % (2.0-8.0); NEUTROPHILS # 4.7 10^3/uL (1.5-8.5); NEUTROPHILS % 60.7 % (36.0-66.0); PLATELET COUNT, AUTOMATED 253 10^3/uL (150-450)
[2025-02-27] MEDS: NS (Normal Saline) 0.9% 1,000 ML IV ONE (13:34)
[2025-02-27] MEDS: ONDANSETRON 4MG 2ML VIAL IV ONE (13:35)
[2025-02-27 13:46] LABS: CPK CREATINE PHOSPHOKINASE 261 U/L (34-145)
[2025-02-27 14:03] LABS: ALT/SGPT 15 U/L (7.0-40); AST/SGOT 19 U/L (<34); CALCIUM LEVEL 9.1 MG/DL (8.5-10.1); CARBON DIOXIDE LEVEL 24 MMOL/L (20-31); CHLORIDE LEVEL 108 MMOL/L (98-107); CK-MB VALUE MASS 2.1 NG/ML (<3.6); CREATININE FOR GFR 0.52 MG/DL (0.55-1.30); FREE T4 1.43 NG/DL (0.89-1.76); GLOMERULAR FILTRATION RATE > 90.0 (>60); MB/CK RELATIVE INDEX 0.80 (< OR =4); POTASSIUM SERUM 3.2 MMOL/L (3.5-5.1); SODIUM LEVEL 144 MMOL/L (136-145)
[2025-02-27 14:48] LABS: CK-MB VALUE MASS 1.7 NG/ML (<3.6); CPK CREATINE PHOSPHOKINASE 233.0 U/L (34-145); MB/CK RELATIVE INDEX 0.72 (< OR =4)
[2025-02-27] MEDS: DICYCLOMINE INJ 20 MG/2 ML IM ONE (15:07)
[2025-02-27] MEDS ORDERED: ISOVUE-370 76% 100 ML VIAL As Ordered ONE (15:29)
[2025-02-27] MEDS: POTASSIUM CHLORIDE 10MEQ SR TABLET PO ONE (15:34)
[2025-02-27] MEDS: ACETAMINOPHEN *IV* 1,000 MG in IV 1 EA IV ONE (18:35)
[2025-02-27] MEDS ORDERED: PROM25TA12 PO (19:13)
[2025-02-27 19:38] VITALS: BP 126/72; TEMP 98.5; O2SAT 98
== END 2025-02-27 19:43 | disposition home or self-care (01) ==
LOC: M ED 10:41
DX: R07.9 Chest pain, unspecified (principal); R10.9 Unspecified abdominal pain; Z98.84 Bariatric surgery status; F17.200 Nicotine dependence, unspecified, uncomplicated; F12.10 Cannabis abuse, uncomplicated; Z79.899 Other long term (current) drug therapy; Z88.6 Allergy status to analgesic agent; Z88.2 Allergy status to sulfonamides; Z88.1 Allergy status to other antibiotic agents; Z88.5 Allergy status to narcotic agent; Z91.89 Other specified personal risk factors, not elsewhere classified; Z88.8 Allergy status to other drugs, medicaments and biological substances
CPT/HCPCS: 71045; 74177; 80047; 80048; 80076; 82550; 82553; 83690; 83880; 84439; 84443; 84484; 85025; 85379; 93005; 93041; 94760; 96372; 96374; 96375; 99284; J0131; J0500; J2405; J2550; Q9967